=== PATIENT | female | born 1980 | race Caucasian/White ===

== ENCOUNTER → 2018-07-28 | Outpatient (CLI) | payer OTHER ==
--- NOTE | 2018-07-29 07:57 | USB ---
Reason for exam: clinical finding. Indicated problem(s): lump or thickening in the right breast. Physical Findings: Nurse Summary: Patient complains of right breast lump x 8 months with pain (nurse mj). US Breast RT Right complete breast ultrasound includes all four quadrants, the retroareolar region and axilla. Finding demonstrates no cystic or solid lesion seen. Benign appearing node in right axilla. These results were verbally communicated with the patient and result sheet given to the patient on 07/28/18. ASSESSMENT: Benign, BI-RAD 2 RECOMMENDATION: Routine screening mammogram of both breasts at age 42. Manage patient on a clinical basis.
== END ==
LOC: RADUSWWP 14:51
PROVIDERS: ATTEND Family Medicine
DX: N63.13 Unspecified lump in the right breast, lower outer quadrant (principal)

== ENCOUNTER → 2018-08-19 | Outpatient (CLI) | payer OTHER ==
--- NOTE | 2018-08-19 16:27 | XR ---
EXAM TYPE: LUMBAR SPINE X RAY SERIES COMPARISON: NONE HISTORY: Pain TECHNIQUE: 3 views are submitted. FINDINGS: Alignment is anatomic. The pedicles are intact. The transverse processes are intact. There is no s pondylolysis or spondylolisthesis. Hypertrophic changes are seen and there is degenerative disc dise ase L4-5 and L5-S1. IMPRESSION: 1. Mild degenerative disc disease lower lumbar spine recommend follow-up MRI.
--- NOTE | 2018-08-19 16:29 | XR ---
EXAMINATION TYPE: XR cervical spine comp DATE OF EXAM: 08/19/2018 COMPARISON: NONE HISTORY: Pain TECHNIQUE: Four views are submitted. FINDINGS: The odontoid is intact. There are no compression deformities. The prevertebral soft tissue structur es are within normal limits. Hypertrophic changes and degenerative disc disease at C4-5, C5-6 and es pecially C6-C7. Mild foraminal encroachment C4-5 and C5-6 on the left. Chronic fragmentation of the o ccipital protuberance is incidentally noted. IMPRESSION: 1. Multilevel degenerative disc disease with suspected foraminal encroachment recommend follow-up MRI .
== END | disposition home or self-care (01) ==
LOC: RADXRMAIN 13:51
PROVIDERS: ATTEND Physician Assistant
DX: M50.321 Other cervical disc degeneration at C4-C5 level (principal); M51.36 Other intervertebral disc degeneration, lumbar region
CPT/HCPCS: 72050; 72100

== ENCOUNTER → 2019-01-24 | Outpatient (CLI) | payer OTHER ==
--- NOTE | 2019-01-24 15:55 | MR ---
EXAMINATION TYPE: MR lumbar spine wo con DATE OF EXAM: 01/24/2019 COMPARISON: None HISTORY: Low back pain TECHNIQUE: Multiplanar, multisequence images of the lumbar spine were acquired. Lumbar vertebra have normal alignment. Disc spaces are fairly normal. Posterior elements are intact. Intervertebral discs have normal signal pattern. Lumbar nerve roots appear normal. Neural foramina ap pear widely patent. There is no lumbar paraspinal mass. Sacroiliac joints appear normal. There is no compression fracture . There is no evidence of spinal stenosis. IMPRESSION: Normal MR scan of the lumbar spine.
== END ==
LOC: RADMRIMAIN 10:21
PROVIDERS: ATTEND Family Medicine
DX: M54.5 Low back pain (principal)
CPT/HCPCS: 72148

== ENCOUNTER → 2019-10-23 | Outpatient (CLI) | payer OTHER ==
--- NOTE | 2019-10-27 09:17 | MM ---
Reason for exam: screening (asymptomatic). Baseline mammogram. History: Patient is nulliparous. Family history of breast cancer in paternal aunt at age 40 and breast cancer in paternal aunt. Took progesterone for 5 years beginning at age 33. Physical Findings: Nurse did not find any significant physical abnormalities on exam. MG Screening Mammo w CAD Bilateral CC and MLO view(s) were taken. There are scattered fibroglandular densities. Finding: There is an intermediate concern, suspicious 5-6 mm high density, oval mass in the subareolar position of the right breast consistent with questionable mass. There is no discrete abnormality. These results were verbally communicated with the patient and result sheet given to the patient on 10/23/19. ASSESSMENT: Incomplete: need additional imaging evaluation, BI-RAD 0 RECOMMENDATION: Special view mammogram of the right breast.
--- NOTE | 2019-10-27 09:18 | MM ---
Reason for exam: additional evaluation requested from abnormal screening. History: Patient is nulliparous. Family history of breast cancer in paternal aunt at age 40 and breast cancer in paternal aunt. Took progesterone for 5 years beginning at age 33. MG Work Up Mamm w CAD RT Spot compression CC view(s) were taken of the right breast. There is no discrete abnormality. These results were verbally communicated with the patient and result sheet given to the patient on 10/23/19. ASSESSMENT: Benign, BI-RAD 2 RECOMMENDATION: Return to routine screening mammogram schedule for both breasts.
== END | disposition home or self-care (01) ==
LOC: RADMAMWWP 14:19
PROVIDERS: ATTEND Family Medicine
DX: Z12.31 Encounter for screening mammogram for malignant neoplasm of breast (principal); R92.8 Other abnormal and inconclusive findings on diagnostic imaging of breast
CPT/HCPCS: 77065; 77067

== ENCOUNTER → 2019-11-04 | Outpatient (CLI) | payer OTHER ==
--- NOTE | 2019-11-04 17:05 | CONS ---
CONSULTATION DATE OF SERVICE: 11/04/2019 This patient is a 39-year-old lady who has been evaluated in [facility] for snoring, witnessed episodes of stopped breathing during sleep, significant excessive daytime sleepiness and also symptoms of insomnia. HISTORY OF PRESENT ILLNESS/SLEEP-WAKE EVALUATION: The patient has had her symptoms for about 2 years. Her usual sleep schedule is from midnight or 2 a.m. until 7 or 9 a.m. She does have problems with falling asleep, although no TV in bedroom. She sleeps on the side position and stomach position with loud snoring and witnessed episodes of stopped breathing during sleep. She wakes up from sleep up to 5 times with episodes of nocturia. She wakes up with choking, grinding teeth, dry mouth, panic attacks, heartburn, restless legs, gasping for air and sweating. In the morning the patient wakes up tired, has difficulties paying attention, falling asleep during the day, worries about her sleep, has problems with memory, concentration, irritability, anxiety, sexual dysfunction. [place] Sleepiness Scale is significantly increased at 17. The patient takes naps up to 4 times a day. Sometimes she sees vivid dreams during naps. PAST MEDICAL HISTORY: Positive for hypertension, acid reflux, possibly mood disorder, allergies, asthma, pneumonia in May of 2019. MEDICATIONS: Spironolactone, albuterol, Verna, fluticasone, ibuprofen, Zoloft, omeprazole. SOCIAL HISTORY: Negative for smoking or using alcohol. FAMILY HISTORY: Positive for heart problems, hyperlipidemia, stroke, epilepsy, acid reflux. REVIEW OF SYSTEMS: Difficulties initiating sleep, awakenings from sleep, sleepiness during the day. PHYSICAL EXAMINATION: GENERAL: A pleasant lady without distress. VITAL SIGNS: BP 165/88, HR 100, RR 16, height 5 feet 2 inches, weight 233, BMI 42.6, temperature 97.8, oxygen saturation at room air 95%. HEENT: PERRLA, EOMI. Evaluation of oropharynx showed tongue protrudes midline. NECK: Supple. No JVD. Thyroid is not palpable. Neck measures 19-1/2 inches in circumference. LUNGS: Clear to percussion and to auscultation. Good air exchange. No wheezing or rhonchi. HEART: S1, S2 regular. No murmurs, gallops or rubs. ABDOMEN: Obese. EXTREMITIES: No clubbing or cyanosis. DINKEY DISPATCHER: Awake, alert, and oriented X3. Cranial nerves 2 to 7 intact. There is no fasciculation or atrophy. noted. No focal deficits observed. IMPRESSION: 1. Snoring, witnessed episodes of stopped breathing during sleep, multiple awakenings from sleep, wide neck; obstructive sleep apnea-hypopnea syndrome. 2. Significant excessive daytime sleepiness with [place] Sleepiness Scale 17 dictating necessity to include narcolepsy in the differential diagnosis. 3. Obesity. 4. Hypertension. 5. History of kicking at night; possibly periodic limb movements. 6. Acid reflux. 7. History of pneumonia in May of 2019. 8. Allergies. 9. Acid reflux. 10.Difficulties initiating sleep and insomnia. PLAN: 1. Polysomnography for evaluation of patient's breathing during sleep. 2. CPAP/BiPAP titration if sleep study confirms obstructive sleep apnea-hypopnea syndrome. 3. Preferable position during sleep on the side. 4. No driving if patient feels any sleepiness. 5. I will see patient for follow up visit to explain results of testing and following plan. 6. If the patient continues to have sleepiness after treatment of obstructive sleep apnea which is documented, the patient may need a multiple sleep latency test for objective evaluation of her symptoms of sleepiness for possibility of narcolepsy. Thank you very much for referring this patient for consultation. Sincerely, Seferino Post MD, PhD, FAASM Diplomat of [place] [employer] Specialties [place] [employer] Miller [facility] [place] MMODL / NALININ: [id number] /
== END | disposition home or self-care (01) ==
LOC: SLEEP 13:28
PROVIDERS: ATTEND Internal Medicine
DX: G47.33 Obstructive sleep apnea (adult) (pediatric) (principal); I10 Essential (primary) hypertension; E66.9 Obesity, unspecified; K21.9 Gastro-esophageal reflux disease without esophagitis; Z87.01 Personal history of pneumonia (recurrent)
CPT/HCPCS: 99211

== ENCOUNTER → 2021-05-24 | Outpatient (CLI) | payer OTHER ==
--- NOTE | 2021-05-24 16:10 | SFUN ---
SLEEP CENTER FOLLOW UP NOTE DATE OF SERVICE: 05/24/2021 41-year-old lady has been followed in Sleep Center for treatment of obstructive sleep apnea-hypopnea syndrome. I saw patient in October of 2019. At that time, it was recommended to her to proceed with polysomnogram but for different reason, it was not done at that time. The patient continues to have problems with her sleep. Loud snoring, multiple awakenings from sleep. She feels significantly sleepy during the day. [place] Sleepiness Scale today is 12, which is above normal range. She may take several naps during the day. MEDICATIONS: Gabapentin 40 mg twice a day, ibuprofen 800 mg twice a day, loratadine 10 mg once a day, omeprazole 40 mg once a day, fenofibrate 160 mg once a day, cyclobenzaprine 10 mg once a day spironolactone 25 mg 2 tablets a day, Pro air, fluticasone, melatonin. PHYSICAL EXAMINATION: GENERAL: Patient in no distress. BP 142/89, HR about 100, RR 18, height 5 feet 2-1/4 inches, weight 220.2 pounds, body mass index 39.9, temperature 97.4, oxygen saturation at room air 95%. Oropharynx extremely low position of soft palate, Mallampati 4. NECK is very wide 19.5 inches in circumference. Neck: Supple, no JVD. Thyroid is not palpable. LUNGS: Clear to percussion and to auscultation. Good air exchange. No wheezing or rhonchi. HEART: S1, S2 regular. No murmurs, gallops, or rubs. ABDOMEN: Obese. Soft and nontender. Bowel sounds are present. No organomegaly appreciated. EXTREMITIES: No clubbing or cyanosis. SERVICE DELIVERY SUPERVISOR: Awake, alert, and oriented X3. Cranial nerves 2 to 7 intact. There is no fasciculation or atrophy. noted. No focal deficits observed. IMPRESSION: 1. Loud snoring, multiple awakenings from sleep, extremely low position of soft palate, wide neck, 19.5 inches in circumference, obstructive sleep apnea-hypopnea syndrome. 2. Excessive daytime sleepiness by [place] Sleepiness Scale. 3. Obesity. Body mass index 39.9. 4. Hypertension. 5. History of kicking at night possibly periodic limb movements. 6. Acid reflux. 7. Allergies. PLAN: 1. Polysomnography for evaluation of patient breathing during sleep also to check for possible periodic limb movements. 2. Sleep hygiene with regular time in bed for at least 8 hours. 3. Precautions related to driving. No driving if feeling sleepiness. 4. Following plan after reviewing results of sleep study. If sleep study is negative, we may consider to proceed with multiple sleep latency test. Thank you very much for allowing me to participate in management of your patient. Sincerely, Seferino Post MD, PhD, FAASM Diplomat of [place] [employer] Sleep Medicine Board of [place] [employer] Suppression Crew Leader [facility] [place] MMODL / IJN: [id number] /
== END ==
LOC: SLEEP 13:33
PROVIDERS: ATTEND Internal Medicine
DX: G47.33 Obstructive sleep apnea (adult) (pediatric) (principal); E66.9 Obesity, unspecified; I10 Essential (primary) hypertension; K21.9 Gastro-esophageal reflux disease without esophagitis; T78.40XD Allergy, unspecified, subsequent encounter; Z68.39 Body mass index [BMI] 39.0-39.9, adult; Z79.899 Other long term (current) drug therapy

== ENCOUNTER 2021-06-21 12:36 | Inpatient (IN) | payer OTHER ==
[2021-06-21 14:03] LABS: Basophils % (A) 0 %; Eosinophils # (A) 0.1 k/uL (0-0.7); Eosinophils % (A) 1 %; HCT 44.9 % (34.0-46.0); HGB 14.8 gm/dL (11.4-16.0); Lymphocytes # (A) 2.2 k/uL (1.0-4.8); Lymphocytes % (A) 25 %; MCH 31.2 pg (25.0-35.0); MCHC 33.1 g/dL (31.0-37.0); MCV 94.3 fL (80.0-100.0); Mean Platelet Volume 6.5; Monocytes # (A) 0.4 k/uL (0-1.0); Monocytes % (A) 5 %; Neutrophils # (A) 6.1 k/uL (1.3-7.7); Neutrophils % (A) 67 %; Platelet Count 327 k/uL (150-450); RBC 4.76 m/uL (3.80-5.40); RDW 13.1 % (11.5-15.5); WBC 9.1 k/uL (3.8-10.6)
[2021-06-21 14:11] LABS: ALT 29 U/L (4-34); AST 30 U/L (14-36); African American GFR (CKD) >90 (>60 ml/min/1.73 sqM); Albumin 4.3 g/dL (3.5-5.0); Alcohol <10 mg/dL; Alkaline Phosphatase 62 U/L (38-126); Anion Gap 10 mmol/L; Blood Urea Nitrogen 16 mg/dL (7-17); Calcium 9.5 mg/dL (8.4-10.2); Carbon Dioxide 24 mmol/L (22-30); Chloride 106 mmol/L (98-107); Glucose 101 mg/dL (74-99); Non-African American GFR(CKD) 80 (>60 ml/min/1.73 sqM); Potassium 4.3 mmol/L (3.5-5.1); Sodium 140 mmol/L (137-145); Total Bilirubin 0.4 mg/dL (0.2-1.3); Total Protein 7.4 g/dL (6.3-8.2)
--- NOTE | 2021-06-21 14:15 | XR ---
EXAMINATION TYPE: XR chest 2V DATE OF EXAM: 06/21/2021 COMPARISON: None available HISTORY: Altered mental status TECHNIQUE: Frontal and lateral views of the chest are obtained. FINDINGS: Grossly unremarkable lungs. No pleural effusion or pneumothorax. No cardiomegaly. Mild degenerative c hanges of the lower thoracic spine. IMPRESSION: No acute abnormality identified.
[2021-06-21 14:26] LABS: INR 0.9 (<1.2); Partial Thromboplastin Time 25.4 sec (22.0-30.0); Prothrombin Time 10.4 sec (9.0-12.0)
--- NOTE | 2021-06-21 14:37 | CT ---
EXAMINATION TYPE: CT brain wo con for TPA DATE OF EXAM: 06/21/2021 COMPARISON: None HISTORY: Trouble speaking CT DLP: 1102.[address] of the brain was performed. There is focal decreased attenuation involving the left frontal lobe which may reflect acute CVA. Und erlying lesion is difficult to exclude. Consider MRI correlation. There is no evidence for hemorrhagic transformation. The ventricles basal cisterns and sulci The cerebral convexities are otherwise within normal limits. No mass effects are seen. Osseous calvarium is intact. If symptoms persist consider MRI as clinically warranted. IMPRESSION: 1. There is focal decreased attenuation involving the left frontal lobe which may reflect acute CVA. Underlying lesion is difficult to exclude. Consider MRI correlation.
[2021-06-21 14:51] LABS: Appearance,Urine Cloudy (Clear); Bilirubin,Urine Negative (Negative); Blood,Urine Negative (Negative); Color,Urine Yellow; Glucose,Urine (UA) Negative (Negative); Ketones,Urine Negative (Negative); Leukocyte Esterase,Urine Negative (Negative); Nitrite,Urine Negative (Negative); PH, Urine 6.5 (5.0-8.0); Protein,Urine Negative (Negative); Specific Gravity,Urine 1.023 (1.001-1.035); Squamous Epithelial Cell,Urine <1 /hpf (0-4); Urobilinogen,Urine <2.0 mg/dL (<2.0); WBC,Urine <1 /hpf (0-5)
[2021-06-21 15:03] LABS: Amphetamine Screen,Urine Not Detected (NotDetected); Barbiturate Screen,Urine Not Detected (NotDetected); Benzodiazepines Screen,Urine Not Detected (NotDetected); Cocaine Screen,Urine Not Detected (NotDetected); Methadone Screen, Urine Not Detected (NotDetected); Opiate Screen,Urine Not Detected (NotDetected); Oxycodone Screen, Urine Not Detected (NotDetected); Phencyclidine Screen,Urine Not Detected (NotDetected); Tricyclic Antidepressant,Urine Not Detected (NotDetected); Urn Cannabinoid Scrn Detected (NotDetected)
--- NOTE | 2021-06-21 15:37 | CT ---
EXAMINATION TYPE: CT angio head neck DATE OF EXAM: 06/21/2021 HISTORY: Trouble speaking COMPARISON: Nonenhanced CT scan performed earlier today CT DLP: 730.8 mGycm. Automated Exposure Control for Dose Reduction was Utilized. TECHNIQUE: CTA scan of the neck and head is performed with IV Contrast, patient injected with 65 mL of Isovue 370, axial images are obtained, coronal and sagittal reformatted images are reviewed. 3D an d MIP reconstructed images are created on an independent workstation and reviewed. FINDINGS: Markedly reduced caliber of the supraclinoid portion and terminus of the left internal carotid artery with reduced caliber of the A1 segment of the left GITA. The left MCA is not well seen opacified with either markedly reduced caliber or complete occlusion with collaterals with reduced enhancement of t he left MCA distal branches as compared to the right sided branches. Left frontal and to a lesser extent left posterior temporal cortical and subcortical hypodensities, p ossibly representing acute to subacute infarcts. Complete [place] of [place] is noted. Separate origin of the left vertebral artery arising directly from the aortic arch between the left common carotid an d left subclavian origins. Otherwise normal caliber and enhancement of the neck arteries and intracranial arteries without other significant stenosis, other occlusion, dissection, aneurysm or AV malformation. Patent major intracr anial venous sinuses. Enlarged nasopharyngeal and palatine tonsils. Degenerative changes at C5-6 and C6-7 levels. 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 This could represent either a markedly reduced caliber of the left MCA versus complete occlusion with collaterals. Recommend correlation with the patient's medical history and presentation. Underlying a rterial spasm or vasculitis cannot be excluded. Further MRI assessment can be considered if clinicall y required.
[2021-06-21] MEDS ORDERED: ASPIRIN 325 MG TAB PO STA (16:05)
--- NOTE | 2021-06-21 16:11 | ED ---
General Adult HPI - General Chief complaint: Neuro Symptoms/Deficit Stated complaint: Speech Issues Time Seen by Provider: 06/21/21 13:09 Source: patient, RN notes reviewed, old records reviewed Mode of arrival: wheelchair Limitations: no limitations - History of Present Illness Initial comments: Patient is a 41-year-old female with past medical history remarkable for diabetes, hypertension who presents emergency Department complaining of neurological complaints. She states that for the last 3 days, she has noticed difficulty with finding words. When he 2 weeks ago she was diagnosed with right hand carpal tunnel and his weakness with associate research scientist strength on the right side. Denies any sensory deficits or weakness otherwise. Denies any history of blood clots. Patient's mother does have a history of a stroke at an older age. She has no other acute complaints at this time. Presents over concern for her neurological complaints. She was started on gabapentin for her carpal tunnel as well as chronic nerve pain in her legs and was concerned that maybe this was what was causing her symptoms. Last known well was 3 days ago. It is possible she was having some minor symptoms prior to that as well, including the reduced associate research scientist strength in the right hand. She is not on blood thinners. - Related Data Home Medications Medication Instructions Recorded Confirmed Albuterol Sulfate [Proair Hfa] 2 puff INHALATION RT-Q4H PRN 06/21/21 06/21/21 Cyclobenzaprine [Flexeril] 10 mg PO DAILY 06/21/21 06/21/21 Erythromycin Topical [Erythromycin 1 applic TOPICAL DAILY PRN 06/21/21 06/21/21 2% Topical Soln] Fenofibrate [Lofibra] 160 mg PO DAILY 06/21/21 06/21/21 Fluticasone Nasal [place] [Flonase 2 spr EA NOSTRIL DAILY 06/21/21 06/21/21 Nasal [place]] Gabapentin [Neurontin] 400 mg PO HS 06/21/21 06/21/21 Ibuprofen [Motrin] 800 mg PO TID 06/21/21 06/21/21 Loratadine 10 mg PO DAILY 06/21/21 06/21/21 Magnesium Oxide 400 mg PO DAILY 06/21/21 06/21/21 Melatonin 3 mg PO HS 06/21/21 06/21/21 Omeprazole 40 mg PO DAILY 06/21/21 06/21/21 Spironolactone [Aldactone] 50 mg PO DAILY 06/21/21 06/21/21 Allergies Allergy/AdvReac Type Severity Reaction Status Date / Time No Known Allergies Allergy Verified 06/21/21 14:23 Review of Systems ROS Statement: Those systems with pertinent positive or pertinent negative responses have been documented in the HPI. Review of Systems: CONST: Denies fever EYES: Denies blurry vision ENT: Denies nasal congestion C/V: Denies Chest pain RESP: Denies shortness of breath GI: Denies abdominal pain : Denies dysuria SKIN: Denies rash. MSK: Denies joint pain. NEURO: Denies headache ROS Other: All systems not noted in ROS Statement are negative. Past Medical History Past Medical History: Diabetes Mellitus, Hypertension History of Any Multi-Drug Resistant Organisms: None Reported Past Surgical History: Unable to Obtain Past Psychological History: Anxiety, Depression, PTSD Smoking Status: Current every day smoker Past Alcohol Use History: None Reported Past Drug Use History: Marijuana General Exam - General Exam Comments Initial Comments: General: Appears in no acute distress. HEAD: Normal with no signs of head trauma. EYES: PERRLA, EOMI, conjunctiva normal, no discharge. Pupils are 3 mm and equal bilaterally. ENT: Hearing grossly intact, normal oropharynx. RESPIRATORY: Clear breath sounds bilaterally. No wheezes, rales, or rhonchi. C/V: Regular rate and rhythm. S1 and S2 auscultated, no edema, peripheral pulses 2+ and intact throughout ABD: Abd is soft, nontender, nondistended EXT: Normal range of motion, no obvious deformity SKIN: No rashes or lesions observed on exposed skin. NEURO: Alert and oriented 4. Cranial nerves II through XII are intact. NIH is 1 for aphasia. GCS is 15. Patient also has reduced associate research scientist strength in the right hand, however has no acute findings with the right arm overall including negative drift. Limitations: no limitations Course Vital Signs 06/21/21 06/21/21 12:46 16:37 Temperature 98.3 F Pulse Rate 116 H 101 H Respiratory 18 18 Rate Blood Pressure 162/118 147/103 O2 Sat by Pulse 98 96 Oximetry Medical Decision Making - Medical Decision Making Based on the patient's presentation and physical exam, I'm concerned for possible stroke due to the acute onset of aphasia as well as reduced right associate research scientist strength. However this could be secondary to her gabapentin and polypharmacy. Due to her being at least 3 days out from symptom onset, code stroke was not activated. She is not a TPA candidate. Last known well was at least 3 days ago but possibly longer. We will obtain CT angiogram as well as CT brain without contrast. NIH is 1 for aphasia. Patient was in agreement this plan. We will obtain stroke workup as well. EKG showed no signs of acute ischemia. Laboratory studies were remarkable for a negative troponin. Ammonia is within normal limits. UDS is positive for marijuana but nothing else. Remainder the labs are unremarkable. Chest x-ray revealed no acute cardio pulmonary process. CT brain revealed what appears to be a suspected subacute stroke in the left frontal lobe, with recommending MRI for follow-up. CT angiogram revealed a suspected left frontal and left temporal acute to subacute infarct in the left MCA territory with reduced caliber of the left internal carotid artery as well as left MCA. Radiology discuss this with me and said it could either be acute or chronic occlusion of the MCA with collaterals present. Underlying arterial spasm or vasculitis cannot be excluded. Recommend MRI still. I discussed these findings with the patient and her mother. She will be admitted. They were in agreement this plan. She'll be given an aspirin. I spoke with neurointervention, Dr. Aguilera who agreed with the medical management plan. She is outside of the window for thrombectomy. He reviewed the images and said that he cannot rule out moyamoya. Would like her to follow up with him outpatient after she is discharged on this admission. I spoke with Dr. Briscoe and consulted neurology, who was in agreement with medical management and the plan for admission. MRI was ordered by him. On reevaluation, patient's neurological exam is unchanged. She'll be admitted to this hospital and serious condition. She'll be admitted to telemetry bed. I spoke with the admitting team under Dr. Macias who accepted the patient. - Lab Data Result diagrams: 06/21/21 13:43 06/21/21 13:43 Lab Results 06/21/21 06/21/21 06/21/21 Range/Units 13:28 13:43 13:43 WBC 9.1 (3.8-10.6) k/uL RBC 4.76 (3.80-5.40) m/uL Hgb 14.8 (11.4-16.0) gm/dL Hct 44.9 (34.0-46.0) % MCV 94.3 (80.0-100.0) fL MCH 31.2 (25.0-35.0) pg MCHC 33.1 (31.0-37.0) g/dL RDW 13.1 (11.5-15.5) % Plt Count 327 (150-450) k/uL MPV 6.5 Neutrophils % 67 % Lymphocytes % 25 % Monocytes % 5 % Eosinophils % 1 % Basophils % 0 % Neutrophils # 6.1 (1.3-7.7) k/uL Lymphocytes # 2.2 (1.0-4.8) k/uL Monocytes # 0.4 (0-1.0) k/uL Eosinophils # 0.1 (0-0.7) k/uL Basophils # 0.0 (0-0.2) k/uL PT 10.4 (9.0-12.0) sec INR 0.9 (<1.2) APTT 25.4 (22.0-30.0) sec Sodium (137-145) mmol/L Potassium (3.5-5.1) mmol/L Chloride (98-107) mmol/L Carbon Dioxide (22-30) mmol/L Anion Gap mmol/L BUN (7-17) mg/dL Creatinine (0.52-1.04) mg/dL Est GFR (CKD-EPI)AfAm (>60 ml/min/1.73 sqM) Est GFR (CKD-EPI)NonAf (>60 ml/min/1.73 sqM) Glucose (74-99) mg/dL Calcium (8.4-10.2) mg/dL Total Bilirubin (0.2-1.3) mg/dL AST (14-36) U/L ALT (4-34) U/L Alkaline Phosphatase (38-126) U/L Ammonia 11 (<30) umol/L Troponin I (0.000-0.034) ng/mL Total Protein (6.3-8.2) g/dL Albumin (3.5-5.0) g/dL Urine Color Urine Appearance (Clear) Urine pH (5.0-8.0) Ur Specific [place] (1.001-1.035) Urine Protein (Negative) Urine Glucose (UA) (Negative) Urine Ketones (Negative) Urine Blood (Negative) Urine Nitrite (Negative) Urine Bilirubin (Negative) Urine Urobilinogen (<2.0) mg/dL Ur Leukocyte Esterase (Negative) Urine WBC (0-5) /hpf Ur Squamous Epith Cells (0-4) /hpf Urine Opiates Screen (NotDetected) Ur Oxycodone Screen (NotDetected) Urine Methadone Screen (NotDetected) Ur Propoxyphene Screen (NotDetected) Ur Barbiturates Screen (NotDetected) U Tricyclic Antidepress (NotDetected) Ur Phencyclidine Scrn (NotDetected) Ur Amphetamines Screen (NotDetected) U Methamphetamines Scrn (NotDetected) U Benzodiazepines Scrn (NotDetected) Urine Cocaine Screen (NotDetected) U Marijuana (THC) Screen (NotDetected) Serum Alcohol mg/dL 06/21/21 06/21/21 06/21/21 Range/Units 13:43 13:43 13:43 WBC (3.8-10.6) k/uL RBC (3.80-5.40) m/uL Hgb (11.4-16.0) gm/dL Hct (34.0-46.0) % MCV (80.0-100.0) fL MCH (25.0-35.0) pg MCHC (31.0-37.0) g/dL RDW (11.5-15.5) % Plt Count (150-450) k/uL MPV Neutrophils % % Lymphocytes % % Monocytes % % Eosinophils % % Basophils % % Neutrophils # (1.3-7.7) k/uL Lymphocytes # (1.0-4.8) k/uL Monocytes # (0-1.0) k/uL Eosinophils # (0-0.7) k/uL Basophils # (0-0.2) k/uL PT (9.0-12.0) sec INR (<1.2) APTT (22.0-30.0) sec Sodium 140 (137-145) mmol/L Potassium 4.3 (3.5-5.1) mmol/L Chloride 106 (98-107) mmol/L Carbon Dioxide 24 (22-30) mmol/L Anion Gap 10 mmol/L BUN 16 (7-17) mg/dL Creatinine 0.91 (0.52-1.04) mg/dL Est GFR (CKD-EPI)AfAm >90 (>60 ml/min/1.73 sqM) Est GFR (CKD-EPI)NonAf 80 (>60 ml/min/1.73 sqM) Glucose 101 H (74-99) mg/dL Calcium 9.5 (8.4-10.2) mg/dL Total Bilirubin 0.4 (0.2-1.3) mg/dL AST 30 (14-36) U/L ALT 29 (4-34) U/L Alkaline Phosphatase 62 (38-126) U/L Ammonia (<30) umol/L Troponin I <0.012 (0.000-0.034) ng/mL Total Protein 7.4 (6.3-8.2) g/dL Albumin 4.3 (3.5-5.0) g/dL Urine Color Yellow Urine Appearance Cloudy H (Clear) Urine pH 6.5 (5.0-8.0) Ur Specific [place] 1.023 (1.001-1.035) Urine Protein Negative (Negative) Urine Glucose (UA) Negative (Negative) Urine Ketones Negative (Negative) Urine Blood Negative (Negative) Urine Nitrite Negative (Negative) Urine Bilirubin Negative (Negative) Urine Urobilinogen <2.0 (<2.0) mg/dL Ur Leukocyte Esterase Negative (Negative) Urine WBC <1 (0-5) /hpf Ur Squamous Epith Cells <1 (0-4) /hpf Urine Opiates Screen Not Detected (NotDetected) Ur Oxycodone Screen Not Detected (NotDetected) Urine Methadone Screen Not Detected (NotDetected) Ur Propoxyphene Screen Not Detected (NotDetected) Ur Barbiturates Screen Not Detected (NotDetected) U Tricyclic Antidepress Not Detected (NotDetected) Ur Phencyclidine Scrn Not Detected (NotDetected) Ur Amphetamines Screen Not Detected (NotDetected) U Methamphetamines Scrn Not Detected (NotDetected) U Benzodiazepines Scrn Not Detected (NotDetected) Urine Cocaine Screen Not Detected (NotDetected) U Marijuana (THC) Screen Detected H (NotDetected) Serum Alcohol <10 mg/dL - EKG Data -: EKG Interpreted by Ga EKG Comments: 12-lead Electrocardiogram Interpretation Note EKG was reviewed and interpreted by myself. 12-lead ECG performed at 1334 is interpreted by me as revealing sinus tachycardia at a rate of 110 beats per mi nute. [place] is normal. AL interval is 129 ms, QRS duration is 85 ms, QTc is 385 ms.. There were no ST or T wave abnormalities to suggest myocardial ischemia or injury. R wave progression across the precordium was satisfactory. By my interpretation this EKG is non-diagnostic for acute ischemia. Critical Care Time Critical Care Time: Yes Total Critical Care Time: 35 Critical Care Time: Upon my evaluation, this patient had a high probability of imminent or life- threatening deterioration due to subacute CVA, which required my direct attention, intervention, and personal management. I have personally provided 35 minutes of critical care time exclusive of time spent on separately billable procedures. Time includes review of laboratory data, radiology results, discussion with consultants, and monitoring for potential decompensation. Interventions were performed as documented in my note. Disposition Clinical Impression: CVA (cerebral vascular accident), Aphasia Disposition: ADMITTED IP TO THIS HOSP Condition: Serious Is patient prescribed a controlled substance at d/c from ED?: No
[2021-06-21] MEDS ORDERED: SODIUM CHLORIDE 0.9% 1,000 ML IV STA (16:22)
[2021-06-21] MEDS ORDERED: ATORVASTATIN 80 MG TAB PO STA (16:22)
[2021-06-21] MEDS ORDERED: hydrALAZINE HCL 20 MG/ML 1 ML VIAL IVP STA (17:07)
[2021-06-21 20:13] LABS: Glucose,Whole Blood 101 mg/dL (75-99)
[2021-06-21] MEDS: HEPARIN SODIUM,PORCINE/PF 5,000 UNIT/0.5 ML SYRINGE SQ SCH (22:02)
[2021-06-21] MEDS: GABAPENTIN 400 MG CAP PO SCH (22:02)
[2021-06-21] MEDS: MELATONIN 3 MG TABLET PO SCH (22:06)
[2021-06-22 06:09] LABS: Glucose,Whole Blood 124 mg/dL (75-99)
[2021-06-22] MEDS: PANTOPRAZOLE 40 MG TABLET PO SCH (06:09)
[2021-06-22] MEDS: LORATADINE 10 MG TAB PO SCH (08:36)
[2021-06-22] MEDS: CYCLOBENZAPRINE 10 MG TAB PO SCH (08:36)
[2021-06-22] MEDS: CLOPIDOGREL 75 MG TAB PO SCH (08:36)
[2021-06-22] MEDS: ASPIRIN 81 MG PO SCH (08:36)
[2021-06-22] MEDS: HEPARIN SODIUM,PORCINE/PF 5,000 UNIT/0.5 ML SYRINGE SQ SCH ×2 (08:36→20:08)
[2021-06-22] MEDS: SPIRONOLACTONE 25 MG TAB PO SCH (08:36)
[2021-06-22] MEDS ORDERED: ALBUTEROL NEBULIZED 2.5 MG/3 ML INHALATION PRN (09:18)
[2021-06-22 09:29] LABS: Chol/HDL Ratio 4.99 Ratio; LDL Cholesterol,Calculated 134.1 mg/dL (0.0-131.0)
[2021-06-22] MEDS: NICOTINE 14MG/24HR PATCH TRANSDERM SCH (10:01)
--- NOTE | 2021-06-22 10:29 | P.CNNES ---
History of Present Illness Consult date: 06/22/21 Requesting physician: Hayden Butterfield Reason for Consult: subacute ischemic stroke History of Present Illness: This is a 41-year-old right-handed woman with history of hypertension, diabetes, bilateral carpal tunnel syndrome who presented emergency department on 06/21/2021 because of word finding difficulties for the past 3 days prior to presenting to the hospital. Some of the history is obtained from medical record s because of her speech difficulty. Patient stated that the as stated earlier she's been having difficulty getting her words out and is seems more word finding difficulties. Per patient she has noticed right hand weakness about 4 days ago prior to presenting to hospital but was inconistent with that time and notified ED team she had right hand weakness for 2 weeks and was told she had right carpal tunnel syndrome. According to patient she notified me that she was told she had bilateral carpal tunnel syndrome in 03/2021 and was started on Gabapentin during that time. Otherwise denies of any new neurological deficits. She denies of visual disturbance, swallowing, any other focal deficits, any new numbness or tingling. She denies of headache, nausea or vomiting. She was concerned that he symptoms were worse due to Gabapentin since was taking more but could not tell me how much more. She denies history of stroke or TIA in the past. She denies being on antiplatelets or anticoagulation. Her mother has history of stroke in her 60's years old. The patient smokes 1/2PPD for at least 15 years. Denies alcohol use or illicit drug use. She follows-up with Dr. Mane (neurologist) and was the one who notified her that she has bilateral carpal tunnel (right > left) and she had peripheral neuropathy of lower extremities. She felt she had hypertension for at least 5 years. Patient is on gabapentin 400 mg daily at bedtime, Flexeril 10 mg daily, melatonin 3 mg daily at bedtime Some of the workup in the hospital consisted of: Patient initial blood pressure is 162/118, heart rate of 116, temperature of 98.3. Patient has been afebrile during this admission CBC with differential is unremarkable Chemistry panel is unremarkable. With the initial serum glucose of 101. Calcium is 9.5, a COTTON[employer] MEAT [employer]ESSER disease within normal limits ammonia level is 11. Hemoglobin A1c 6.6 TSH is 1.8-0. PT, PTT in INR is within normal limits Urinalysis is negative for urinary tract infection. Urine drug screen is positive for marijuana otherwise the rest is nondetected and serum alcohol was less than 10. CT of the head is reported as there is focal decreased attenuation involving the left frontal lobe which may reflect acute CVA. Underlying lesion is difficult to exclude. Consider MRI correlation. I personally reviewed the CT of the head and there is a hypodensity over the left frontal region it is seems more subacute. Otherwise there is no acute or subacute ischemic or any interpretable hemorrhage that is noticeable. CT angiography of the head and neck was reported as suspected left frontal and left temporal acute to subacute infarct over the left MCA territory with reduced caliber of the left internal carotid artery terminus as well as the left MCA. This could represent either markedly reduced caliber of the left MCA versus complete occlusion with collateral. Recommend correlation with the patient's the medical history and presentation. Underlying arterial spasm or vasculitis cannot be excluded. Further MRI assessment can be considered if clinically required. Dr. Aguilera (Stroke/Neurointerventionalist attending) who was contacted by the ED team and he reviewed the images and felt cannot rule out Moyamoya. No thrombectomy since outside 24 hour window. NIH 1 for aphasia per ED and no IV tpa since outside window (present 3 days out) and the risk outweigh the benefits. Review of Systems Review of system: The 12 point system was reviewed and apparent positive and negative per HPI. Past Medical History Past Medical History: Diabetes Mellitus, Hypertension Additional Past Medical History / Comment(s): Patient states she was prediabetic, neuropathy. History of Any Multi-Drug Resistant Organisms: None Reported Past Surgical History: No Surgical Hx Reported Past Anesthesia/Blood Transfusion Reactions: No Reported Reaction Past Psychological History: Anxiety, Depression, PTSD Smoking Status: Current every day smoker Past Alcohol Use History: None Reported Past Drug Use History: Marijuana - Past Family History Mother Family Medical History: Coronary Artery Disease (CAD), CVA/TIA Father Family Medical History: Seizure Disorder Medications and Allergies Home Medications Medication Instructions Recorded Confirmed Type Albuterol Sulfate [Proair Hfa] 2 puff INHALATION RT-Q4H PRN 06/21/21 06/21/21 History Cyclobenzaprine [Flexeril] 10 mg PO DAILY 06/21/21 06/21/21 History Erythromycin Topical [Erythromycin 1 applic TOPICAL DAILY PRN 06/21/21 06/21/21 History 2% Topical Soln] Fenofibrate [Lofibra] 160 mg PO DAILY 06/21/21 06/21/21 History Fluticasone Nasal [place] [Flonase 2 spr EA NOSTRIL DAILY 06/21/21 06/21/21 History Nasal [place]] Gabapentin [Neurontin] 400 mg PO HS 06/21/21 06/21/21 History Ibuprofen [Motrin] 800 mg PO TID 06/21/21 06/21/21 History Loratadine 10 mg PO DAILY 06/21/21 06/21/21 History Magnesium Oxide 400 mg PO DAILY 06/21/21 06/21/21 History Melatonin 3 mg PO HS 06/21/21 06/21/21 History Omeprazole 40 mg PO DAILY 06/21/21 06/21/21 History Spironolactone [Aldactone] 50 mg PO DAILY 06/21/21 06/21/21 History Allergies Allergy/AdvReac Type Severity Reaction Status Date / Time No Known Allergies Allergy Verified 06/21/21 14:23 Physical Examination - Vital Signs Vital Signs: Vital Signs Temp Pulse Pulse Resp BP BP Pulse Ox 06/22/21 03:38 98.0 F 102 H 16 147/89 94 L 06/21/21 23:58 97.3 F L 88 18 136/88 94 L 06/21/21 19:37 97.7 F 101 H 18 146/98 95 06/21/21 17:58 98.2 F 94 18 144/96 97 06/21/21 16:37 101 H 18 147/103 96 06/21/21 12:46 98.3 F 116 H 18 162/118 98 Intake and Output 06/21/21 06/22/21 06/22/21 22:59 06:59 14:59 Other: Voiding Method Toilet # Voids 2 Weight 102.058 kg 103.5 kg GENERAL: The patient is an obese woman, lying in bed and is not in acute distress. She seems anxious. CHEST: The heart rate is regular rate rhythm. No murmurs to auscultation. No carotid bruit bilaterally. LUNG: Clear to auscultation bilaterally no wheezing noted throughout. Not labored breathing. ABDOMEN/GI: Bowel sounds present in all 4 quadrants. No tenderness to palpation throughout. NEUROLOGICAL: Higher mental function: The patient is awake, alert, oriented to self, place and time. Patient is able to name (watch, pen and glasses). Patient is following simple commands. Expressive aphasia. No neglect. Cranial nerves: The pupils are round, equal and reactive to light and accommodation. Visual santillan are full to confrontation throughout. Extraocular movement is intact no nystagmus is noted. Facial sensation is normal to touch throughout. The facial strength is normal throughout. Hearing is normal bilaterally to hand rub. Tongue is midline and moved [id number] without any difficulty. No dysarthria is noted. Shoulder shrug is normal bilaterally. Motor: Gait is normal. The strength is right distal right upper extremity is 3- 4 (including hand marriage therapist). Proximal seemed 5-. Otherwise 5 over 5 throughout. Decrease tone over the right distal upper extremity. Otherwise normal tone and bulk. Cerebellum: Normal finger to nose heel to hernandez bilaterally. Sensation: Sensation is normal to touch throughout. Reflexes (right/left): 2+ throughout. Plantars are downgoing bilaterally. Results - Laboratory Findings CBC and BMP: 06/21/21 13:43 06/21/21 13:43 Abnormal Lab Findings: Abnormal Labs 06/21/21 06/21/21 06/21/21 13:43 13:43 13:43 Glucose 101 H POC Glucose (mg/dL) Hemoglobin A1c 6.6 H Urine Appearance Cloudy H U Marijuana (THC) Screen Detected H 06/21/21 06/22/21 20:12 06:08 Glucose POC Glucose (mg/dL) 101 H 124 H Hemoglobin A1c Urine Appearance U Marijuana (THC) Screen Assessment and Plan Assessment: * Subacute ischemic stroke over left frontal (has expressive aphasia and right hand weakness for the past 3-4 days prior to presentation to hospital "word finding difficulty). NIH 1. No IV tpa since outside window. It is felt by the neuro-intervention team that possibly patient has Moyamoya disease * Reported left ICA/MCA stenosis per CTA (No intervention since outside window) * Diabetes mellitus and most recent hemoglobin A1c is 6.6 * Hypertension and during this presentation her blood pressure slightly elevated * Bilateral carpal tunnel syndrome (right > left) * Peripheral neuropathy * Obesity * Tobacco use (1/2 PPD) Plan: * Dr. Aguilera (Stroke/Neurointerventionalist attending) who reviewed the images and felt cannot rule out Moyamoya. Patient to follow-up with Dr. Aguilera as an outpatient for further management (possible diagnostic cerebral angiogram) and his team will coordinate the follow-up. * She was given aspirin 325mg once in the ED. I started the patient on aspirin the 81 mg and Plavix 75 mg daily (not on any antiplatelets at home). Patient is to be on dual antiplatelets for short duration (1-3 months and after that to stop Plavix and continue ASA indefidently. Will have patient follow-up with Dr. Aguilera within 1-2 weeks and will defer the final dose of stop of dual antiplatelets). I also gave a loading dose of Lipitor 80 mg once in the ED patient was started on Lipitor 40mg daily at bedtime for secondary stroke prop hylaxis * I ordered MRI of the brain and MRA of the head. * Ordered 2-D echo with bubble study. * I ordered ERASMO, antithrombin III antigen antibody, CRP, ESR, factor V Leiden mutation, lupus anticoagulant. Recommend consideration of further hypercoagulable workup as an outpatient * Continue neuro checks * Patient is on cardiac monitoring * PT, OT and GRAIN ELEVATOR WORKER is consulted * Patient is counseled on tobacco cessation * We'll defer the rest of the medical management to the primary team. * For DVT prophylaxis: Started the patient on subq heparin 5000U every 12 hours. * Upon discharge recommend the patient follow up with a neurologist as an outpatient within 1-2 weeks. Follow-up with Dr. Aguilera ([facility] at [phone]) within 1-2 weeks. The plan is discussed with the patient and her nurse. Thank you for the Consultation Salo Briscoe M.D. Neuro-Hospitalist Time with Patient: Greater than 30
[2021-06-22 11:32] LABS: Glucose,Whole Blood 95 mg/dL (75-99)
--- NOTE | 2021-06-22 11:36 | ECHOF ---
Referral Reason:stroke. Need bubble study MEASUREMENTS -------- HEIGHT: 157.5 cm WEIGHT: 103.4 kg BP: RVIDd: 2.5 cm (< 3.3) IVSd: 1.2 cm (0.6 - 1.1) LVIDd: 4.5 cm (3.9 - 5.3) LVPWd: 1.3 cm (0.6 - 1.1) IVSs: 1.5 cm LVIDs: 3.7 cm LVPWs: 1.2 cm LA Diam: 3.1 cm (2.7 - 3.8) MV E [place]: 0.51 m/s MV DecT: 310 ms MV A [place]: 0.67 m/s MV E/A Ratio: 0.76 RAP: 5.00 mmHg RVSP: 17.86 mmHg FINDINGS -------- Sinus rhythm. This was a technically adequate study. LV size, wall thickness and systolic function are normal, with an EF greater than 55%. The left hair tricular size is normal. The right ventricle is normal in size. The left atrial size is normal. The right atrial size is normal. Bubble study perfermord suboptimal. The aortic valve is trileaflet, and appears structurally normal. No aortic stenosis or regurgitation. Mild mitral regurgitation is present. Mild tricuspid regurgitation present. Right ventricular systolic pressure is normal at < 35 mmHg. There is no pulmonic regurgitation present. There is no pericardial effusion. CONCLUSIONS -------- 1. LV size, wall thickness and systolic function are normal, with an EF greater than 55%. 2. The left ventricular size is normal. 3. The right ventricle is normal in size. 4. The left atrial size is normal. 5. The right atrial size is normal. 6. Bubble study perfermord suboptimal. 7. The aortic valve is trileaflet, and appears structurally normal. No aortic stenosis or regurgitati on. 8. Mild mitral regurgitation is present. 9. Mild tricuspid regurgitation present. 10. There is no pericardial effusion. STOCK PLAN ADMINISTRATOR: Gi Zaragoza RDCS
--- NOTE | 2021-06-22 12:37 | MR ---
EXAMINATION TYPE: MR brain wo/w con, MR angio head wo con DATE OF EXAM: 06/22/2021 COMPARISON: CT angiogram of the brain and CT brain 06/21/2021 HISTORY: difficulty speaking. stroke. Right side weakness TECHNIQUE: Multiplanar, multisequence images of the brain and brainstem is performed without and with IV contras t, utilizing 10 mL intravenous Gadavist, [id number] imaging obtained through the [place] . 3-dimensional postprocessing was performed on an alternate workstation and reviewed . FINDINGS: There is motion on exam. Brain MRI with and without contrast: Diffusion weighted images demonstrate restricted diffusion in th e left frontoparietal artifacts and underlying white matter as well as a punctate focus in the right frontal cortex, axial image 25 series 403, corresponding signal change is present on inversion recove ry T2-weighted sequences. There is abnormal hyperintensity involving the anterior aspect of the ileana us callosum extending to the adjacent white matter in the right frontal cortex, some additional scatt ered areas of hyperintensity present in the subcortical and periventricular white matter There is no extra-axial fluid collection. The ventricular system and cisternal spaces are normal in size and melanie earance. The brain volume is age appropriate. The craniocervical junction appears within normal limits. Post contrast images demonstrate what is l ikely some minimal arthritic perfusion at the site of patient's subacute infarct. The dural venous si nuses appear patent. The visualized sinuses are showing some mucosal disease in the maxillary sinuses , ethmoid air cells, and the globes are intact. IMPRESSION: Subacute infarct primarily in the left frontoparietal location however small focus is pre sent contralaterally, consider embolic phenomenon. [place] MRA: The abnormalities described on prior CTA show corresponding signal changes on M RA. Suspect collateralization, reduced flow at the level of the M1 and A1 segments of the internal ca rotid artery on the left, difficult to exclude a chronic occlusion, consider underlying vasculitis. R educed signal is present in the middle cerebral artery supervision on the left corresponding to patie nt's cerebral vascular infarct. Motion is present which limits detail. No evident aneurysm, dissectio n. IMPRESSION: Findings correlate with previously described abnormalities on CTA. There is artifact on t he exam. Consider vasculitis, chronic occlusion, embolic phenomenon
--- NOTE | 2021-06-22 13:07 | P.HPIM ---
History of Present Illness H&P Date: 06/22/21 this is a 41-year-old female who presents to the emergency room with complaints of difficulty finding words over the last 3 days. States some slurred speech difficulty with pronunciation, Reports difficulty finding her words and reports right upper extremity weakness. Patient was a code stroke in the EC however was outside of the window for TPA infusion. Past medical history includes borderline diabetes, hypertension, recent diagnosis of right hand carpal tunnel 2 weeks ago with weakness and decreased channel business manager strength on the right side. Patient has anxiety/depression/PTSD is a current daily smoker smokes about 1 to 1/2 packs per day, also daily marijuana use. There is a family history for stroke, her mother had one in her 60s. Patient has recently started gabapentin for carpal tunnel and chronic neuropathy in her legs and was questioning if this is causing symptoms. Rachel follows with Dr Mane and Dr Witt in the outpatient setting. Patient admitted to the hospital with neurology consultation. Patient started on aspirin Plavix combination as well as lipitor. Takes lobfibra at home. Patient counseled extensively on the importance of nicotine cessation, weight loss, following appropriate diabetic medications and blood glucose monitoring. Chest x-ray negative for acute findings labs on admission unremarkable, glucose in the 120s, hemoglobin A1c 6.6, troponin negative, CRP 1.6, TSH 1.8-0, liver enzymes within normal limits. Urinalysis negative, urine drug toxicology negative with exception of marijuana. Lipid panel Tirglycerides 229, cholesterol 225, LDL 134, HDL 45 EKG shows sinus tachycardia heart rate 110 with a QT interval 385, no ST or T- wave abnormalities evident. Brain CT shows a focal decreased attenuation left frontal lobe which may reflect acute CVA with underlying lesion difficult to exclude CT angiography showed suspected left frontal and left temporal acute to subacute infarcts in the left MCA territory with reduced caliber of left internal carotid artery terminus as well as left MCA. Markedly reduced caliber of left MCA versus complete occlusion with collaterals. Underlying arterial spasm or vasculitis cannot be excluded. Additional findings in report. Brain MRI shows subacute infarct in the left frontoparietal location however small focus is present contralaterally, consider embolic phenomenon MRA shows similar findings consider vasculitis, chronic occlusion, embolic phenomenon. Pt afebrile, heart rate 94, blood pressure 144/96, 96% room air. REVIEW OF SYSTEMS: CONSTITUTIONAL: No fever, no malaise, no fatigue. HEENT: No recent visual problems or hearing problems. Denied any sore throat. CARDIOVASCULAR: No chest pain, orthopnea, PND, no palpitations, no syncope. PULMONARY: No shortness of breath, no cough, no hemoptysis. GASTROINTESTINAL: No diarrhea, no nausea, no vomiting, no abdominal pain. NEUROLOGICAL: No headaches, reports slurred speech, difficulty finding words, and right sided weakness onset 3 days ago HEMATOLOGICAL: Denies any bleeding or petechiae. GENITOURINARY: Denies any burning micturition, frequency, or urgency. MUSCULOSKELETAL/RHEUMATOLOGICAL: Denies any joint pain, swelling, or any muscle pain. ENDOCRINE: Denies any polyuria or polydipsia. The rest of the 14-point review of systems is negative. PHYSICAL EXAMINATION: GENERAL: The patient is alert and oriented x3, not in any acute distress. Well developed, well nourished. Obese HEENT: Pupils are round and equally reacting to light. EOMI. No scleral icterus. No conjunctival pallor. Normocephalic, atraumatic. No pharyngeal erythema. No thyromegaly. CARDIOVASCULAR: S1 and S2 present. No murmurs, rubs, or gallops. PULMONARY: Chest is clear to auscultation, no wheezing or crackles. ABDOMEN: Soft, nontender, nondistended, normoactive bowel sounds. No palpable organomegaly. MUSCULOSKELETAL: No joint swelling or deformity. EXTREMITIES: No cyanosis, clubbing, or pedal edema. NEUROLOGICAL: Right upper extremity weakness, no drift however hand grasp with weakened strength, lower extremity equal, has some ataxia with finger nose touch, also with difficulty finding words has to stop and think and trouble expressing. SKIN: No rashes. Assessment and Plan Assessment Subacute ischemic stroke with symptoms of broca aphasia, right upper extremities weakness over the last 3 to 4 days. Risk factors include obesity, hypertension, diabetes, chronic nicotine use. Patient counseled on the importance of lifestyle and risk factor modification in combination with medication compliance for stroke prevention. Pt does follow with a child care assistant at her primary care office and will continue to work closely with her on discharge. Hypertension Diabetes mellitus type 2 with hgb A1c of 6.6 Elevated inflammatory markers Recent diagnosis carpal tunnel right wrist Peripheral neuropathy, started on gabapentin recently Obesity Chronic daily nicotine use: counseling provided Marijuana use GI Prophylaxis: Protonix DVT Prophylaxis: Subcu heparin Full Code Plan Started on aspirin/plavix combination as well as lipitor Continue neuro checks Speech therapy evaluation Nicotine patch Resume appropriate home medications Discharge planning in the next 24 to 48 hours. Past Medical History Past Medical History: Diabetes Mellitus, Hypertension Additional Past Medical History / Comment(s): Patient states she was prediabetic, neuropathy. History of Any Multi-Drug Resistant Organisms: None Reported Past Surgical History: No Surgical Hx Reported Past Anesthesia/Blood Transfusion Reactions: No Reported Reaction Past Psychological History: Anxiety, Depression, PTSD Smoking Status: Current every day smoker Past Alcohol Use History: None Reported Past Drug Use History: Marijuana - Past Family History Mother Family Medical History: Coronary Artery Disease (CAD), CVA/TIA Father Family Medical History: Seizure Disorder Medications and Allergies Home Medications Medication Instructions Recorded Confirmed Type Albuterol Sulfate [Proair Hfa] 2 puff INHALATION RT-Q4H PRN 06/21/21 06/21/21 History Cyclobenzaprine [Flexeril] 10 mg PO DAILY 06/21/21 06/21/21 History Erythromycin Topical [Erythromycin 1 applic TOPICAL DAILY PRN 06/21/21 06/21/21 History 2% Topical Soln] Fenofibrate [Lofibra] 160 mg PO DAILY 06/21/21 06/21/21 History Fluticasone Nasal [place] [Flonase 2 spr EA NOSTRIL DAILY 06/21/21 06/21/21 History Nasal [place]] Gabapentin [Neurontin] 400 mg PO HS 06/21/21 06/21/21 History Ibuprofen [Motrin] 800 mg PO TID 06/21/21 06/21/21 History Loratadine 10 mg PO DAILY 06/21/21 06/21/21 History Magnesium Oxide 400 mg PO DAILY 06/21/21 06/21/21 History Melatonin 3 mg PO HS 06/21/21 06/21/21 History Omeprazole 40 mg PO DAILY 06/21/21 06/21/21 History Spironolactone [Aldactone] 50 mg PO DAILY 06/21/21 06/21/21 History Allergies Allergy/AdvReac Type Severity Reaction Status Date / Time No Known Allergies Allergy Verified 06/21/21 14:23 Physical Exam Vitals: Vital Signs Temp Pulse Pulse Resp BP BP Pulse Ox 06/22/21 08:07 96 06/22/21 03:38 98.0 F 102 H 16 147/89 94 L 06/21/21 23:58 97.3 F L 88 18 136/88 94 L 06/21/21 19:37 97.7 F 101 H 18 146/98 95 06/21/21 17:58 98.2 F 94 18 144/96 97 06/21/21 16:37 101 H 18 147/103 96 06/21/21 12:46 98.3 F 116 H 18 162/118 98 Intake and Output 06/21/21 06/22/21 06/22/21 22:59 06:59 14:59 Other: Voiding Method Toilet # Voids 2 Weight 102.058 kg 103.5 kg Results CBC & Chem 7: 06/21/21 13:43 06/21/21 13:43 Labs: Abnormal Lab Results - Last 24 Hours (Table) 06/21/21 06/21/21 06/21/21 Range/Units 13:43 13:43 13:43 Glucose 101 H (74-99) mg/dL POC Glucose (mg/dL) (75-99) mg/dL Hemoglobin A1c 6.6 H (0.0-6.0) % C-Reactive Protein (<1.0) mg/dL Urine Appearance Cloudy H (Clear) U Marijuana (THC) Screen Detected H (NotDetected) 06/21/21 06/22/21 06/22/21 Range/Units 20:12 06:08 08:09 Glucose (74-99) mg/dL POC Glucose (mg/dL) 101 H 124 H (75-99) mg/dL Hemoglobin A1c (0.0-6.0) % C-Reactive Protein 1.6 H (<1.0) mg/dL Urine Appearance (Clear) U Marijuana (THC) Screen (NotDetected) Thrombosis Risk Factor Assmnt - Choose All That Apply Any of the Below Risk Factors Present?: Yes Each Factor Represents 1 point: Obesity (BMI >25) Other Risk Factors: No Other congenital or acquired thrombophilia - If yes, enter type in comment: Yes Each Risk Factor Represents 5 Points: Stroke (< 1 month) Thrombosis Risk Factor Assessment Total Risk Factor Score: 6 Thrombosis Risk Factor Assessment Level: High Risk Assessment and Plan Time with Patient: Greater than 30
[2021-06-22] MEDS: MELATONIN 3 MG TABLET PO SCH (20:08)
[2021-06-22] MEDS: GABAPENTIN 400 MG CAP PO SCH (20:08)
[2021-06-22] MEDS ORDERED: ATORVASTATIN 40 MG TAB PO SCH (21:00)
[2021-06-23] MEDS: PANTOPRAZOLE 40 MG TABLET PO SCH (06:33)
[2021-06-23] MEDS: FLUTICASONE 50MCG/SPRAY NASAL 16GM EA NOSTRIL SCH (09:10)
[2021-06-23] MEDS: ASPIRIN 81 MG PO SCH (09:11)
[2021-06-23] MEDS: FENOFIBRATE 160 MG TAB PO SCH (09:11)
[2021-06-23] MEDS: CYCLOBENZAPRINE 10 MG TAB PO SCH (09:11)
[2021-06-23] MEDS: CLOPIDOGREL 75 MG TAB PO SCH (09:11)
[2021-06-23] MEDS: NICOTINE 14MG/24HR PATCH TRANSDERM SCH (09:11)
[2021-06-23] MEDS: SPIRONOLACTONE 25 MG TAB PO SCH (09:11)
[2021-06-23] MEDS: LORATADINE 10 MG TAB PO SCH (09:11)
[2021-06-23] MEDS: HEPARIN SODIUM,PORCINE/PF 5,000 UNIT/0.5 ML SYRINGE SQ SCH ×2 (09:15→20:51)
[2021-06-23] MEDS ORDERED: fentaNYL (PF) 50 MCG/ML 2 ML AMP ONE (09:57)
[2021-06-23] MEDS: BENZOCAINE SPRAY 1 CAN TOPICAL ONE ×2 (10:30→10:37)
[2021-06-23] MEDS ORDERED: IV FLUID CONTINUATION 500 ML IV ONE (10:36)
[2021-06-23] MEDS ORDERED: MIDAZOLAM HCL 10 MG/10 ML VIAL IV ONE (10:37)
[2021-06-23] MEDS ORDERED: fentaNYL (PF) 50 MCG/ML 2 ML AMP IV ONE (10:37)
--- NOTE | 2021-06-23 11:02 | P.TEE ---
Indications for Procedure(s): CVA Date of Procedure: 06/23/21 Preoperative Diagnosis: CVA, rule out cardiac source of emboli Postoperative Diagnosis: Questionable PFO with intermittent [id number] shunt Description of Procedure(s): INDICATION: This is a 41-year-old female who was admitted to the hospital with symptoms of CVA and MRI evidence of infarct suggestive possible embolic event. A WERNER examination is requested by neurology CONSENT: Informed verbal consent is obtained from the patient PROCEDURE:. The patient was brought to the lab in a fasting state. Patient was prepped and draped in the usual fashion. Patient was given 2 mg of Versed and 25 mics of fentanyl for sedation. A lubricated Omni probe was introduced into the oropharynx and was advanced into the esophagus. Multiple views were obtained. Color, pulsed and continuous Doppler studies were performed. Saline contrast bubble injection is done. Patient tolerated the procedure well. No immediate complications FINDINGS:. The aortic, mitral, tricuspid, spell appeared within normal. The left atrial appendage is free of any clot. The chamber sizes are within normal limits. The interatrial septum seemed to be intact. There appeared to be questionable intermittent shunt across the interatrial septum with [id number] shunt. Injection of the saline contrast bubbles did not show any crossing of bubbles. The left atrial appendage is free of any clot. The left ventricle function is normal IMPRESSION:. #1. No clot in the left atrial appendage. #2. Questionable intermittent cnku-id-gswue shunt across the interatrial septum. No crossing of bubbles with saline injection #3. Normal chamber sizes. #4. Normal valvular function. #5. Ascending aorta is normal PLAN: Second opinion regarding questionable shunt across the interatrial septum. Continue current medical therapy.
--- NOTE | 2021-06-23 11:38 | P.PN ---
Subjective Progress Note Date: 06/23/21 The patient is seen at bedside and feels about the same. Denies of any new neurological problems. She had MRI Brain and it's reported as subacute infarct primarily in the left frontal parietal location however small focus is present contralaterally, consider embolic phenomenon. I personally reviewed the MRI and I do feel like a subacute stroke the stroker is predominantly on the left frontal with parietal Association and has some right frontal as well as. MRA of the head is reported as finding correlate with previously described abnormalities on the CTA. There is artifact on exam. Consider vasculitis, chronic occlusion, embolic phenomena. No evidence of aneurysm, dissection. Objective - Vital Signs Vital signs: Vital Signs Temp 97.7 F 06/23/21 03:55 Pulse 101 H 06/23/21 03:55 Resp 16 06/23/21 03:55 BP 127/88 06/23/21 03:55 Pulse Ox 94 L 06/23/21 03:55 Intake & Output 06/22/21 06/23/21 06/23/21 18:59 06:59 18:59 Intake Total 200 0 Balance 200 0 Intake: Oral 200 0 Other: # Voids 1 1 1 - Exam GENERAL: The patient is an obese woman, lying in bed and is not in acute distress. She seems anxious. NEUROLOGICAL: Higher mental function: The patient is awake, alert, oriented to self, place and time. Patient is able to name (watch, pen and glasses). Patient is following simple commands. Expressive aphasia. No neglect. Cranial nerves: The pupils are round, equal and reactive to light and accommodation. Visual santillan are full to confrontation throughout. Extraocular movement is intact no nystagmus is noted. Facial sensation is normal to touch throughout. The facial strength is normal throughout. Hearing is normal bilaterally to hand rub. Tongue is midline and moved [id number] without any difficulty. No dysarthria is noted. Shoulder shrug is normal bilaterally. Motor: Gait is normal. The strength is right distal right upper extremity is 3- 4 (including hand rake operator). Proximal seemed 5-. Otherwise 5 over 5 throughout. Decrease tone over the right distal upper extremity. Otherwise normal tone and bulk. Cerebellum: Normal finger to nose heel to hernandez bilaterally. Sensation: Sensation is normal to touch throughout. Reflexes (right/left): 2+ throughout. Plantars are downgoing bilaterally. WORK-UP: Lipid panel is triglycerides 229, cholesterol 225, LDLs 134 and HDL 45. TSH is 1.80. Hemoglobin A1c 6.6 ESR is 14 (normal) CRP is 1.6 and the normal "supposed to be less than 1.0. ERASMO is negative PT, PTT in INR is within normal limits Urinalysis is negative for urinary tract infection. Urine drug screen is positive for marijuana otherwise the rest is nondetected and serum alcohol was less than 10. CT of the head is reported as there is focal decreased attenuation involving the left frontal lobe which may reflect acute CVA. Underlying lesion is difficult to exclude. Consider MRI correlation. I personally reviewed the CT of the head and there is a hypodensity over the left frontal region it is seems more subacute. Otherwise there is no acute or subacute ischemic or any interpretable hemorrhage that is noticeable. CT angiography of the head and neck was reported as suspected left frontal and left temporal acute to subacute infarct over the left MCA territory with reduced caliber of the left internal carotid artery terminus as well as the left MCA. This could represent either markedly reduced caliber of the left MCA versus complete occlusion with collateral. Recommend correlation with the patient's the medical history and presentation. Underlying arterial spasm or vasculitis cannot be excluded. Further MRI assessment can be considered if clinically re quired. She had MRI Brain and it's reported as subacute infarct primarily in the left frontal parietal location however small focus is present contralaterally, consider embolic phenomenon. I personally reviewed the MRI and I do feel like a subacute stroke the stroker is predominantly on the left frontal with parietal Association and has some right frontal as well as. MRA of the head is reported as finding correlate with previously described abnormalities on the CTA. There is artifact on exam. Consider vasculitis, chronic occlusion, embolic phenomena. No evidence of aneurysm, dissection. 2-D echo was reported as left ventricle size is normal. Ejection fraction of greater than 55%. Left atrial size is normal. Bubble study performed suboptimal. Dr. Aguilera (Stroke/Neurointerventionalist attending) who was contacted by the ED team and he reviewed the images of CTA and felt cannot rule out Moyamoya. No thrombectomy since outside 24 hour window. NIH 1 for aphasia per ED and no IV tpa since outside window (present 3 days out) and the risk outweigh the benefits. - Labs CBC & Chem 7: 06/21/21 13:43 06/21/21 13:43 Assessment and Plan Assessment: * Subacute ischemic stroke over left fronto/parietal and right frontal (has expressive aphasia and right hand weakness for the past 3-4 days prior to presentation to hospital "word finding difficulty). NIH 1. No IV tpa since outside window. Seems embolic in nature. It is felt by the neuro-intervention team that possibly patient has ?Moyamoya disease * Reported left ICA/MCA stenosis on imaging (CTA and MRA0. * Diabetes mellitus and most recent hemoglobin A1c is 6.6 * Dyslipidemia (newly diagnosed during this admission) * Hypertension and during this presentation her blood pressure slightly elevated * Bilateral carpal tunnel syndrome (right > left) * Peripheral neuropathy * Obesity * Tobacco use (/2 PPD) Plan: * Dr. Aguilera (Stroke/Neurointerventionalist attending) who reviewed the images a nd felt cannot rule out Moyamoya. Patient to follow-up with Dr. Aguilera as an outpatient for further management (possible diagnostic cerebral angiogram) and his team will coordinate the follow-up. * Continue aspirin the 81 mg and Plavix 75 mg daily (not on any antiplatelets at home). Patient is to be on dual antiplatelets for short duration (1-3 months and after that to stop Plavix and continue ASA indefidently. Will have patient follow-up with Dr. Aguilera within 1-2 weeks and will defer the final dose of stopping of dual antiplatelets). Increased Lipitor from 40mg to 80 daily at bedtime for secondary stroke prophylaxis * 2D echo with bubble study: The bubble study is suboptimal. I consulted cardiology team for WERNER and event monitor. * I ordered antithrombin III antigen antibody, factor V Leiden mutation, lupus anticoagulant. Recommend consideration of further hypercoagulable workup as a n outpatient * I ordered venous duplex of the upper and lower extremities to rule out DVTs because of the embolic phenomena and they're both reported as negative. * Continue neuro checks * Patient is on cardiac monitoring * PT, OT and [employer] is consulted * Patient is counseled on tobacco cessation * Patient denies being on any control. She was informed to avoid estrogen as contraceptive but continues progesterone. * We'll defer the rest of the medical management to the primary team. * For DVT prophylaxis: On subq heparin 5000U every 12 hours. * Upon discharge recommend the patient follow up with a neurologist as an outpatient within 1-2 weeks. Follow-up with Dr. Aguilera (Melanie Alcantara at [phone]) within 1-2 weeks. UPDATE: Transesophageal echocardiogram was reported as no clot in the left atrial appendage. Questionable intermittent left to right shunt across that intra- arterial septum. No crossing of bubble with saline injection. Normal chamber. Normal valvular function. Ascending aorta is normal. Second opinion regarding questionable shunt across the interatrial septum. Continue current medical management. Recommended that event monitor or loop recorder prior the patient's discharge. Cardiology will re-review the WERNER. Otherwise no further neurological work-up as inpatient. The plan is discussed with the patient and her nurse. Salo Briscoe M.D. Neuro-Hospitalist Time with Patient: Less than 30
[2021-06-23 12:02] LABS: APTT 64 Sec(s) (<43); APTT 1:1 Mix 52 Sec(s) (<43); DRVVT 1:1 Mix 41 Sec(s) (<44); Dilute Russell Viper Venom 51 Sec(s) (<44); Hexagonal Phase Neutralization Positive (Negative)
--- NOTE | 2021-06-23 13:29 | P.PN ---
Progress Note - Text WERNER noted No clear-cut [id number]-gq-jnyo shunt with saline agitated contrast No cardiac thrombus Await venous Doppler results May consider intracardiac echo with saline agitated contrast to evaluate the interatrial septum Will see the patient and discuss further plan
--- NOTE | 2021-06-23 13:56 | US ---
EXAMINATION TYPE: US venous doppler duplex LE BI DATE OF EXAM: 06/23/2021 12:09 PM COMPARISON: NONE CLINICAL HISTORY: embolic stroke. +PFO. Rule out stroke. SIDE PERFORMED: Bilateral TECHNIQUE: The lower extremity deep venous system is examined utilizing real time linear array sonog olga with graded compression, doppler sonography and color-flow sonography. VESSELS IMAGED: Common Femoral Vein Deep Femoral Vein Greater Saphenous Vein * Femoral Vein Popliteal Vein Small Saphenous Vein * Proximal Calf Veins (* superficial vessels) Right Leg: Negative for DVT Left Leg: Negative for DVT IMPRESSION: Grayscale, color doppler, spectral doppler imaging performed of the deep veins of the lo wer extremities. There is normal flow, compressibility, vascular waveforms. No evidence of DVT of t he lower extremities.
--- NOTE | 2021-06-23 14:32 | US ---
EXAMINATION TYPE: US venous doppler duplex UE BI DATE OF EXAM: 06/23/2021 COMPARISON: NONE CLINICAL HISTORY: embolic stroke. +PFO. SIDE PERFORMED: Bilateral The following veins were assessed bilaterally: Inferior aspect of the internal jugular vein. Subclavian vein. Axillary vein. Brachial vein. Cephalic and basilic veins. Ulnar and radial veins. Right Arm: Negative for DVT Left Arm: Negative for DVT IMPRESSION: Grayscale, color doppler, spectral doppler imaging performed of the deep veins of the upper extremiti es. There is normal flow, compressibility and vascular waveforms. No evidence of DVT of the upper extremities.
--- NOTE | 2021-06-23 15:58 | P.PN ---
Subjective Progress Note Date: 06/23/21 this is a 41-year-old female who presents to the emergency room with complaints of difficulty finding words over the last 3 days. States some slurred speech difficulty with pronunciation, Reports difficulty finding her words and reports right upper extremity weakness. Patient was a code stroke in the EC however was outside of the window for TPA infusion. Past medical history includes borderline diabetes, hypertension, recent diagnosis of right hand carpal tunnel 2 weeks ago with weakness and decreased senior producer strength on the right side. Patient has anxiety/depression/PTSD is a current daily smoker smokes about 1 to 1/2 packs per day, also daily marijuana use. There is a family history for stroke, her mother had one in her 60s. Patient has recently started gabapentin for carpal tunnel and chronic neuropathy in her legs and was questioning if this is causing symptoms. Rachel follows with Dr Mane and Dr Witt in the outpatient setting. Patient admitted to the hospital with neurology consultation. Patient started on aspirin Plavix combination as well as lipitor. Takes lobfibra at home. Patient counseled extensively on the importance of nicotine cessation, weight loss, following appropriate diabetic medications and blood glucose monitoring. Chest x-ray negative for acute findings labs on admission unremarkable, glucose in the 120s, hemoglobin A1c 6.6, troponin negative, CRP 1.6, TSH 1.8-0, liver enzymes within normal limits. Urinalysis negative, urine drug toxicology negative with exception of marijuana. Lipid panel Tirglycerides 229, cholesterol 225, LDL 134, HDL 45 EKG shows sinus tachycardia heart rate 110 with a QT interval 385, no ST or T- wave abnormalities evident. Brain CT shows a focal decreased attenuation left frontal lobe which may reflect acute CVA with underlying lesion difficult to exclude CT angiography showed suspected left frontal and left temporal acute to subacute infarcts in the left MCA territory with reduced caliber of left internal carotid artery terminus as well as left MCA. Markedly reduced caliber of left MCA versus complete occlusion with collaterals. Underlying arterial spasm or vasculitis cannot be excluded. Additional findings in report. Brain MRI shows subacute infarct in the left frontoparietal location however small focus is present contralaterally, consider embolic phenomenon MRA shows similar findings consider vasculitis, chronic occlusion, embolic phenomenon. Pt afebrile, heart rate 94, blood pressure 144/96, 96% room air. 06/23/2021 Patient evaluated today at the bedside still with slight right facial droop, right upper extremity weakness, and expressive aphsia. Today she states that she remembers about 1 week ago prior to going to sleep she felt "buzzing" throughout the right side of her body, went to sleep and sensation was gone in the morning. Patient frustrated and tearful today. Thought she was going home, plan is for review tomorrow by cardiology and patient will need a loop recorder/or event monitor prior to discharge. Reports difficulty sleeping last night, would like something to help her sleep. Also requesting an increase in nicotine patch strength. ERASMO negative. Blood glucose controlled in the 90s. CRP 1.6. Patient will need to follow with speech therapy 3 to 5 times per week on discharge, they are recommending inpatient rehab. Upper and lower extremity venous doppler negative. WERNER shows no clot in left atrial appendage, questionable intermittent left to right shunt across the interarterial septum with no crossing of bubbles with saline injection. Normal valvular function. Per cardiology notes a intracardiac echo with saline agitated contrast might be considered, reevaluation of patient tomorrow. Being followed closely by neurology services. Upon leaving room, patient pushed her bedside table across the room into the sink, spilled water everywhere and was crying and tearful and stating "I just want to go home." Vitals reviewed: Pt afebrile, tachycardia HR 108, blood pressure 147/94, 95% on room air. REVIEW OF SYSTEMS: CONSTITUTIONAL: No fever, no malaise, no fatigue. HEENT: No recent visual problems or hearing problems. Denied any sore throat. CARDIOVASCULAR: No chest pain, orthopnea, PND, no palpitations, no syncope. PULMONARY: No shortness of breath, no cough, no hemoptysis. GASTROINTESTINAL: No diarrhea, no nausea, no vomiting, no abdominal pain. NEUROLOGICAL: No headaches, reports slurred speech, difficulty finding words, and right sided weakness onset 3 days ago All current medications reviewed and appropriate. PHYSICAL EXAMINATION: GENERAL: The patient is alert and oriented x3, not in any acute distress. Well developed, well nourished. Obese HEENT: Pupils are round and equally reacting to light. EOMI. No scleral icterus. No conjunctival pallor. Normocephalic, atraumatic. No pharyngeal erythema. No thyromegaly. CARDIOVASCULAR: S1 and S2 present. No murmurs, rubs, or gallops. PULMONARY: Chest is clear to auscultation, no wheezing or crackles. ABDOMEN: Soft, nontender, nondistended, normoactive bowel sounds. No palpable organomegaly. MUSCULOSKELETAL: No joint swelling or deformity. EXTREMITIES: No cyanosis, clubbing, or pedal edema. NEUROLOGICAL: Right upper extremity weakness, no drift however hand grasp with weakened strength, lower extremity equal, expressive aphasia SKIN: No rashes. Assessment and Plan Assessment Subacute ischemic stroke with symptoms of broca aphasia, right upper extremity weakness, slight right facial droop, rule out embolic component questionable left to right atrial shunt on WERNER Today. Hypertension Tachycardia, patient with some acute agitation, start ativan continue cardiac monitoring Diabetes mellitus type 2 with hgb A1c of 6.6 Elevated inflammatory markers Recent diagnosis carpal tunnel right wrist Peripheral neuropathy, started on gabapentin recently Obesity Chronic daily nicotine use: counseling provided Marijuana use GI Prophylaxis: Protonix DVT Prophylaxis: Subcu heparin Full Code Plan Add ativan for agitation Cardiology re-eval tomorrow Needs loop recorder / event monitor on discharge Continue neuro checks Speech therapy evaluation Nicotine patch Continue all other supportive care Discharge planning; home with HC will need ongoing speech therapy Objective - Vital Signs Vital signs: Vital Signs Temp 97.7 F 06/23/21 08:00 Pulse 108 H 06/23/21 12:00 Resp 18 06/23/21 12:00 BP 147/94 06/23/21 12:00 Pulse Ox 95 06/23/21 12:00 Intake & Output 06/22/21 06/23/21 06/23/21 18:59 06:59 18:59 Intake Total 200 100 Balance 200 100 Intake: IV 100 Oral 200 0 Other: # Voids 1 1 1 - Labs CBC & Chem 7: 06/21/21 13:43 06/21/21 13:43 Labs: Abnormal Lab Results - Last 24 Hours (Table) 06/22/21 Range/Units 08:09 Lupus Anticoag aPTT 64 H (<43) Sec(s) Lupus Anticoag PTT Mix 52 H (<43) Sec(s) Dil Gamaliel Viper Venom 51 H (<44) Sec(s) Lupus Hexagonal Phase Positive A (Negative) Assessment and Plan Time with Patient: Greater than 30
[2021-06-23] MEDS: GABAPENTIN 400 MG CAP PO SCH (20:51)
[2021-06-23] MEDS: NICOTINE 21MG/24HR PATCH TRANSDERM SCH (20:51)
[2021-06-23] MEDS: ATORVASTATIN 80 MG TAB PO SCH (20:51)
[2021-06-23] MEDS: LORazepam 0.5 MG TAB PO PRN (20:51)
[2021-06-23] MEDS: MELATONIN 3 MG TABLET PO SCH (20:51)
[2021-06-23] MEDS ORDERED: ACETAMINOPHEN TAB 325 MG TAB PO PRN (20:59)
[2021-06-24] MEDS: SODIUM CHLORIDE 0.9% 1,000 ML IV SCH ×2 (00:34→08:27)
[2021-06-24] MEDS: PANTOPRAZOLE 40 MG TABLET PO SCH (06:37)
[2021-06-24] MEDS: LORATADINE 10 MG TAB PO SCH (08:26)
[2021-06-24] MEDS: FENOFIBRATE 160 MG TAB PO SCH (08:26)
[2021-06-24] MEDS: CLOPIDOGREL 75 MG TAB PO SCH (08:26)
[2021-06-24] MEDS: CYCLOBENZAPRINE 10 MG TAB PO SCH (08:26)
[2021-06-24] MEDS: SPIRONOLACTONE 25 MG TAB PO SCH (08:26)
[2021-06-24] MEDS: ASPIRIN 81 MG PO SCH (08:26)
[2021-06-24] MEDS: LORazepam 0.5 MG TAB PO PRN ×3 (08:26→22:46)
[2021-06-24] MEDS: NICOTINE 21MG/24HR PATCH TRANSDERM SCH (08:26)
[2021-06-24] MEDS: HEPARIN SODIUM,PORCINE/PF 5,000 UNIT/0.5 ML SYRINGE SQ SCH ×2 (08:26→21:05)
[2021-06-24] MEDS: FLUTICASONE 50MCG/SPRAY NASAL 16GM EA NOSTRIL SCH (08:27)
[2021-06-24 08:32] LABS: Basophils % (A) 0 %; Eosinophils # (A) 0.1 k/uL (0-0.7); Eosinophils % (A) 2 %; HCT 49.1 % (34.0-46.0); HGB 16.5 gm/dL (11.4-16.0); Lymphocytes # (A) 2.5 k/uL (1.0-4.8); Lymphocytes % (A) 29 %; MCH 31.9 pg (25.0-35.0); MCHC 33.5 g/dL (31.0-37.0); MCV 95.1 fL (80.0-100.0); Mean Platelet Volume 6.6; Monocytes # (A) 0.4 k/uL (0-1.0); Monocytes % (A) 4 %; Neutrophils # (A) 5.5 k/uL (1.3-7.7); Neutrophils % (A) 63 %; Platelet Count 321 k/uL (150-450); RBC 5.16 m/uL (3.80-5.40); RDW 13.1 % (11.5-15.5); WBC 8.7 k/uL (3.8-10.6)
[2021-06-24 08:35] LABS: Calcium 9.6 mg/dL (8.4-10.2); Potassium 5.2 mmol/L (3.5-5.1)
--- NOTE | 2021-06-24 13:00 | P.PN ---
Subjective Progress Note Date: 06/24/21 The patient is seen at bedside and feels about the same. She denies of any new neurological problems. Objective - Vital Signs Vital signs: Vital Signs Temp 97.9 F 06/24/21 12:32 Pulse 104 H 06/24/21 12:32 Resp 18 06/24/21 12:32 BP 142/105 06/24/21 12:32 Pulse Ox 97 06/24/21 12:32 Intake & Output 06/23/21 06/24/21 06/24/21 18:59 06:59 18:59 Intake Total 100 540 118 Balance 100 540 118 Intake: IV 100 Oral 0 540 118 Other: Voiding Method Toilet Toilet # Voids 1 3 1 # Bowel Movements 0 1 - Exam GENERAL: The patient is an obese woman, lying in bed and is not in acute distress. She seems anxious. NEUROLOGICAL: Higher mental function: The patient is awake, alert, oriented to self, place and time. Patient is able to name (watch, pen and glasses). Patient is following simple commands. Expressive aphasia. No neglect. Cranial nerves: The pupils are round, equal and reactive to light and accommodation. Visual santillan are full to confrontation throughout. Extraocular movement is intact no nystagmus is noted. Facial sensation is normal to touch throughout. The facial strength is normal throughout. Hearing is normal bilaterally to hand rub. Tongue is midline and moved [id number] without any difficulty. No dysarthria is noted. Shoulder shrug is normal bilaterally. Motor: Gait is normal. The strength is right distal right upper extremity is 3- 4 (including hand spring inspector). Proximal seemed 5-. Otherwise 5 over 5 throughout. Decrease tone over the right distal upper extremity. Otherwise normal tone and bulk. Cerebellum: Normal finger to nose heel to hernandez bilaterally. Sensation: Sensation is normal to touch throughout. Reflexes (right/left): 2+ throughout. Plantars are downgoing bilaterally. WORK-UP: Lipid panel is triglycerides 229, cholesterol 225, LDLs 134 and HDL 45. TSH is 1.80. Hemoglobin A1c 6.6 ESR is 14 (normal) CRP is 1.6 and the normal "supposed to be less than 1.0. ERASMO is negative It seems the Lupus anticoagulant testing seems elevated Antithrombin III antigen is 94 which is within normal limits. PT, PTT in INR is within normal limits Urinalysis is negative for urinary tract infection. Urine drug screen is positive for marijuana otherwise the rest is nondetected and serum alcohol was less than 10. CT of the head is reported as there is focal decreased attenuation involving the left frontal lobe which may reflect acute CVA. Underlying lesion is difficult to exclude. Consider MRI correlation. I personally reviewed the CT of the head and there is a hypodensity over the left frontal region it is seems more subacute. Otherwise there is no acute or subacute ischemic or any interpretable hemorrhage that is noticeable. CT angiography of the head and neck was reported as suspected left frontal and left temporal acute to subacute infarct over the left MCA territory with reduced caliber of the left internal carotid artery terminus as well as the left MCA. This could represent either markedly reduced caliber of the left MCA versus complete occlusion with collateral. Recommend correlation with the patient's the medical history and presentation. Underlying arterial spasm or vasculitis cannot be excluded. Further MRI assessment can be considered if clinically required. She had MRI Brain and it's reported as subacute infarct primarily in the left frontal parietal location however small focus is present contralaterally, consider embolic phenomenon. I personally reviewed the MRI and I do feel like a subacute stroke the stroker is predominantly on the left frontal with parietal Association and has some right frontal as well as. MRA of the head is reported as finding correlate with previously described abnormalities on the CTA. There is artifact on exam. Consider vasculitis, chronic occlusion, embolic phenomena. No evidence of aneurysm, dissection. 2-D echo was reported as left ventricle size is normal. Ejection fraction of greater than 55%. Left atrial size is normal. Bubble study performed suboptimal. Transesophageal echocardiogram was reported as no clot in the left atrial appendage. Questionable intermittent left to right shunt across that intra- arterial septum. No crossing of bubble with saline injection. Normal chamber. Normal valvular function. Ascending aorta is normal. Second opinion regarding questionable shunt across the interatrial septum. Continue current medical management. Venous duplex of the upper and lower extremities to rule out DVTs because of the embolic phenomena and they're both reported as negative. Dr. Aguilera (Stroke/Neurointerventionalist attending) who was contacted by the ED team and he reviewed the images of CTA and felt cannot rule out Moyamoya. No thrombectomy since outside 24 hour window. NIH 1 for aphasia per ED and no IV tpa since outside window (present 3 days out) and the risk outweigh the benefits. - Labs CBC & Chem 7: 06/24/21 07:57 06/24/21 07:57 Labs: Abnormal Lab Results - Last 24 Hours (Table) 06/24/21 06/24/21 Range/Units 07:57 07:57 Hgb 16.5 H (11.4-16.0) gm/dL Hct 49.1 H (34.0-46.0) % Potassium 5.2 H (3.5-5.1) mmol/L BUN 20 H (7-17) mg/dL Glucose 117 H (74-99) mg/dL Assessment and Plan Assessment: * Subacute ischemic stroke over left fronto/parietal and right frontal (has expressive aphasia and right hand weakness for the past 3-4 days prior to presentation to hospital "word finding difficulty). NIH 1. No IV tpa since outside window. Seems embolic in nature. It is felt by the neuro-intervention team that possibly patient has ?Moyamoya disease. Her lupus anticoagulant testing seems elevated. * Reported left ICA/MCA stenosis on imaging (CTA and MRA0. * Diabetes mellitus and most recent hemoglobin A1c is 6.6 * Dyslipidemia (newly diagnosed during this admission) * Hypertension and during this presentation her blood pressure slightly elevated * Bilateral carpal tunnel syndrome (right > left) * Peripheral neuropathy * Obesity * Tobacco use (1/2 PPD) Plan: * Dr. Aguilera (Stroke/Neurointerventionalist attending) who reviewed the images and felt cannot rule out Moyamoya. Patient to follow-up with Dr. Aguilera as an outpatient for further management (possible diagnostic cerebral angiogram) and his team will coordinate the follow-up. * Continue aspirin the 81 mg and Plavix 75 mg daily (not on any antiplatelets at home). Patient is to be on dual antiplatelets for short duration (1-3 months and after that to stop Plavix and continue ASA indefidently. Will have patient follow-up with Dr. Aguilera within 1-2 weeks and will defer the final dose of stopping of dual antiplatelets). Increased Lipitor from 40mg to 80 daily at bedtime for secondary stroke prophylaxis * Transesophageal echocardiogram was reported as no clot in the left atrial appendage. Questionable intermittent left to right shunt across that intra- arterial septum. No crossing of bubble with saline injection. Normal chamber. Normal valvular function. Ascending aorta is normal. Second opinion regarding questionable shunt across the interatrial septum. Continue current medical management. * Cardiology team is consulted for event monitor. Also pending final input regarding if patient does have shunt or not on WERNER. * Pending factor V Leiden mutation. Her lupus workup (anticoag pTT, hexagonal phase, rullell viper. ERASMO is negative), therefore consulted hematology. Possible consideration of further hypercoagulable workup as an outpatient * Continue neuro checks * Patient is on cardiac monitoring * PT, OT and APPLICATION PENETRATION TESTER is consulted * Patient is counseled on tobacco cessation * Patient denies being on any control. She was informed to avoid estrogen as contraceptive but continues progesterone. * We'll defer the rest of the medical management to the primary team. * For DVT prophylaxis: On subq heparin 5000U every 12 hours. * Upon discharge recommend the patient follow up with a neurologist as an outpatient within 1-2 weeks. Follow-up with Dr. Aguilera ([facility] at [phone]) within 1-2 weeks. The plan is discussed with the patient and her nurse. Salo Briscoe M.D. Neuro-Hospitalist Time with Patient: Less than 30
--- NOTE | 2021-06-24 14:24 | P.PN ---
Subjective Progress Note Date: 06/24/21 This is Nathanael santana NP, I'm dictating on behalf of Dr. Murray's H&P and A&P. Patient was interviewed and examined. Patient is a pleasant 41-year-old female who initially presented to the hospital with subacute CVA. Patient today reports that she feels good. She denies chest pain, shortness of breath, heart palpitations. Reviewed patient's labs as demonstrates the patient is positive for lupus coagulopathy. Patient had a WERNER that was mildly suspicious for possible PFO. Patient had venous Dopplers of the upper and lower extremities completed, which demonstrated no evidence of DVT. GENERAL: Well-appearing, well-nourished and in no acute distress. NECK: Supple without JVD or thyromegaly. LUNGS: Breath sounds clear to auscultation bilaterally. Respiration equal and unlabored. No wheezes, rales or rhonchi. HEART: Heart rate tachycardic, regular rhythm without murmurs, rubs or gallops. S1 and S2 heard. EXTREMITIES: Normal range of motion, no edema. No clubbing or cyanosis. Peripheral pulses intact and strong. VITALS: Temp 97.9, pulse 104, respirations 18, blood pressure 142/105, O2 saturation 97% on room air TELEMETRY: Normal sinus rhythm LABS: Blood cell count 8.7, hemoglobin 16.5, platelets 321, sodium 139, potassium 5.2, B1 20, creatinine 0.97, IMPRESSION/PLAN: 1. 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 Please follow recommendations from hematology. 2. Suspicion for PFO-will hold off on intracardiac echo for now. Once patient is adequately anticoagulated and has that under control, she can pursue further evaluation. Please do not hesitate to contact us if further recommendations are needed. Objective - Vital Signs Vital signs: Vital Signs Temp 97.9 F 06/24/21 12:32 Pulse 104 H 06/24/21 12:32 Resp 18 06/24/21 12:32 BP 142/105 06/24/21 12:32 Pulse Ox 97 06/24/21 12:32 Intake & Output 06/23/21 06/24/21 06/24/21 18:59 06:59 18:59 Intake Total 100 540 236 Balance 100 540 236 Intake: IV 100 Oral 0 540 236 Other: Voiding Method Toilet Toilet # Voids 1 3 1 # Bowel Movements 0 1 - Labs CBC & Chem 7: 06/24/21 07:57 06/24/21 07:57 Labs: Abnormal Lab Results - Last 24 Hours (Table) 06/24/21 06/24/21 Range/Units 07:57 07:57 Hgb 16.5 H (11.4-16.0) gm/dL Hct 49.1 H (34.0-46.0) % Potassium 5.2 H (3.5-5.1) mmol/L BUN 20 H (7-17) mg/dL Glucose 117 H (74-99) mg/dL
[2021-06-24] MEDS ORDERED: HYDROcodone/APAP 5-325MG 1 EACH TAB PO PRN (15:09)
--- NOTE | 2021-06-24 15:20 | P.PN ---
Subjective Progress Note Date: 06/24/21 this is a 41-year-old female who presents to the emergency room with complaints of difficulty finding words over the last 3 days. States some slurred speech difficulty with pronunciation, Reports difficulty finding her words and reports right upper extremity weakness. Patient was a code stroke in the EC however was outside of the window for TPA infusion. 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 Patient has anxiety/depression/PTSD is a current daily smoker smokes about 1 to 1/2 packs per day, also daily marijuana use. There is a family history for stroke, her mother had one in her 60s. Patient has recently started gabapentin for carpal tunnel and chronic neuropathy in her legs and was questioning if this is causing symptoms. Rachel follows with Dr Mane and Dr Witt in the outpatient setting. Patient admitted to the hospital with neurology consultation. Patient started on aspirin Plavix combination as well as lipitor. Takes lobfibra at home. Patient counseled extensively on the importance of nicotine cessation, weight loss, following appropriate diabetic medications and blood glucose monitoring. Chest x-ray negative for acute findings labs on admission unremarkable, glucose in the 120s, hemoglobin A1c 6.6, troponin negative, CRP 1.6, TSH 1.8-0, liver enzymes within normal limits. Urinalysis negative, urine drug toxicology negative with exception of marijuana. Lipid panel Tirglycerides 229, cholesterol 225, LDL 134, HDL 45 EKG shows sinus tachycardia heart rate 110 with a QT interval 385, no ST or T- wave abnormalities evident. Brain CT shows a focal decreased attenuation left frontal lobe which may reflect acute CVA with underlying lesion difficult to exclude CT angiography showed suspected left frontal and left temporal acute to subacute infarcts in the left MCA territory with reduced caliber of left internal carotid artery terminus as well as left MCA. Markedly reduced caliber of left MCA versus complete occlusion with collaterals. Underlying arterial spasm or vasculitis cannot be excluded. Additional findings in report. Brain MRI shows subacute infarct in the left frontoparietal location however small focus is present contralaterally, consider embolic phenomenon MRA shows similar findings consider vasculitis, chronic occlusion, embolic phenomenon. Pt afebrile, heart rate 94, blood pressure 144/96, 96% room air. 06/23/2021 Patient evaluated today at the bedside still with slight right facial droop, right upper extremity weakness, and expressive aphsia. Today she states that she remembers about 1 week ago prior to going to sleep she felt "buzzing" throughout the right side of her body, went to sleep and sensation was gone in the morning. Patient frustrated and tearful today. Thought she was going home, plan is for review tomorrow by cardiology and patient will need a loop recorder/or event monitor prior to discharge. Reports difficulty sleeping last night, would like something to help her sleep. Also requesting an increase in nicotine patch strength. ERAMSO negative. Blood glucose controlled in the 90s. CRP 1.6. Patient will need to follow with speech therapy 3 to 5 times per week on discharge, they are recommending inpatient rehab. Upper and lower extremity venous doppler negative. WERNER shows no clot in left atrial appendage, questionable intermittent left to right shunt across the interarterial septum with no crossing of bubbles with saline injection. Normal valvular function. Per cardiology notes a intracardiac echo with saline agitated contrast might be considered, reevaluation of patient tomorrow. Being followed closely by neurology services. Upon leaving room, patient pushed her bedside table across the room into the sink, spilled water everywhere and was crying and tearful and stating "I just want to go home." Vitals reviewed: Pt afebrile, tachycardia HR 108, blood pressure 147/94, 95% on room air. 06/24/2021 Patient evaluated today sitting up in the chair. She states she slept well last night and the ativan is working, she feels less anxious today. Also feels better with the increase in nicotine patch. Patient does complain of a 3/10 headache dull ache to the frontal lobe and also states she feels some sinus congestion. She is on claritin, and flonase, with tylenol as needed for pain. She does complain also of chronic mid back pain about a 7/10 non radiating and achy. She was taking motrin 800 at home. Patient also states that she has not had a menstrual period since October of last year, last seen by OBGYN in July 2020 underwent routine pap and pelvic exam were negative as far as patient remembers. She does state she has PCOS, and she states she would like to have a child of her own with her fiancee. Urine HCG negative. Patient will need follow up with OBGYN in the office after discharge. Per cardiology no further work up for the questionable left to right shunt for now, as her lupus anticoag markers elevated with negative ERASMO, hematology was consulted for further review and patient will need anticoagulation. Patient continues on aspirin, plavix, and lipitor. court recording monitor reviewed, patient has been sinus rhythm to sinus tach, no evidence for arrythmia. She will receive a holter monitor on discharge being arranged by cardiology. Blood pressure elevated today 142/105, 97% on room air, afebrile. Labs today hemoglobin 16.5, sodium 139, potassium 5.2, BUN 20, creatinine 0.97, glucose 117. REVIEW OF SYSTEMS: CONSTITUTIONAL: No fever, no malaise, no fatigue. HEENT: No recent visual problems or hearing problems. Denied any sore throat. CARDIOVASCULAR: No chest pain, orthopnea, PND, no palpitations, no syncope. PULMONARY: No shortness of breath, no cough, no hemoptysis. GASTROINTESTINAL: No diarrhea, no nausea, no vomiting, no abdominal pain. NEUROLOGICAL: Reports mild 3/10 dull ache frontal lobe, reports slurred speech, difficulty finding words, and right sided weakness. All current medications reviewed and appropriate. PHYSICAL EXAMINATION: GENERAL: The patient is alert and oriented x3, not in any acute distress. Well developed, well nourished. Obese HEENT: Pupils are round and equally reacting to light. EOMI. No scleral icterus. No conjunctival pallor. Normocephalic, atraumatic. No pharyngeal erythema. No thyromegaly. CARDIOVASCULAR: S1 and S2 present. No murmurs, rubs, or gallops. PULMONARY: Chest is clear to auscultation, no wheezing or crackles. ABDOMEN: Soft, nontender, nondistended, normoactive bowel sounds. No palpable organomegaly. MUSCULOSKELETAL: No joint swelling or deformity. EXTREMITIES: No cyanosis, clubbing, or pedal edema. NEUROLOGICAL: Right upper extremity weakness, no drift however hand grasp with weakened strength, lower extremity equal, expressive aphasia SKIN: No rashes. Assessment and Plan Assessment Subacute ischemic stroke with symptoms of broca aphasia, right upper extremity w eakness, slight right facial droop Lupus coagulopathy, hematology consulted, pending further work up Hyperkalemia, 5.2 today, aldactone held, repeat tomorrow Hypertension, cont to monitor Possible PFO, further work up from cardiology once medically stable on anticoagulation Tachycardia, started low dose metoprolol Diabetes mellitus type 2 with hgb A1c of 6.6 Elevated inflammatory markers Recent diagnosis carpal tunnel right wrist Peripheral neuropathy, started on gabapentin recently Obesity Chronic daily nicotine use: counseling provided Marijuana use GI Prophylaxis: Protonix DVT Prophylaxis: Subcu heparin Full Code Plan Hematology consultation Needs loop recorder / event monitor on discharge Continue neuro checks Speech therapy evaluation Nicotine patch Continue all other supportive care Discharge planning; home with HC will need ongoing speech therapy Objective - Vital Signs Vital signs: Vital Signs Temp 97.9 F 06/24/21 12:32 Pulse 104 H 06/24/21 12:32 Resp 18 06/24/21 12:32 BP 142/105 06/24/21 12:32 Pulse Ox 97 06/24/21 12:32 Intake & Output 06/23/21 06/24/21 06/24/21 18:59 06:59 18:59 Intake Total 100 540 236 Balance 100 540 236 Intake: IV 100 Oral 0 540 236 Other: Voiding Method Toilet Toilet # Voids 1 3 1 # Bowel Movements 0 1 - Labs CBC & Chem 7: 06/24/21 07:57 06/24/21 07:57 Labs: Abnormal Lab Results - Last 24 Hours (Table) 06/24/21 06/24/21 Range/Units 07:57 07:57 Hgb 16.5 H (11.4-16.0) gm/dL Hct 49.1 H (34.0-46.0) % Potassium 5.2 H (3.5-5.1) mmol/L BUN 20 H (7-17) mg/dL Glucose 117 H (74-99) mg/dL Assessment and Plan Time with Patient: Greater than 30
--- NOTE | 2021-06-24 18:02 | P.CRDCN ---
History of Present Illness History of present illness: This is Dr. Murray dictating an H/P on this patient The patient was interviewed and examined IMPRESSION / ASSESSMENT: Embolic CVA in a 41-year-old female with diabetes and hypertension and a history of smoking Evaluate for causes of embolic thromboembolism in a young patient including coagulation/coagulopathy workup, vascular to smoke up and evaluate for venous thrombosis with associated PFO PLAN: WERNER Venous Dopplers of the extremities Coagulopathy workup HPI 41-year-old female presented with weakness of the pincer infusion nurse as well as his speech disturbance She has a history of diabetes and hypertension She is a current smoker Denies any palpitations denies any chest discomfort no loss of consciousness ROS: No fever chills or rigors, no cough, phlegm or expectoration, no nausea, vomiting or diarrhea, no hematuria, dysuria, no musculoskeletal complaints, no strokes or seizures, no skin lesions. EXAMINATION: Blood pressure 136/82 mmHg Pulse rate 90-100 beats a minute sinus mechanism Normal breath sounds no rhonchi no crackles Normal heart sounds no murmurs or gallops No carotid bruits REVIEW OF LABS, ECG & MEDICAL DATA Brain MRI suggest acute CVA involving left frontal lobe Left temporal and left frontal acute to subacute infarct in the left MCA territory with reduced caliber of the left internal carotid artery terminus Twelve-lead EKG shows sinus rhythm normal [place] narrow QRS normal ST segments 2-D echo shows normal LV systolic function and a bubble study that was suboptimal T subsequently showed no clear-cut evidence for [id number] shunt Possible [id number] shunt this was questionable No intracardiac mass Brain MRI subacute infarct left frontoparietal However there is a small focus present contralaterally, consider embolic phenomena No DVT in the upper extremities or the lower extremities Past Medical History Past Medical History: Diabetes Mellitus, Hypertension Additional Past Medical History / Comment(s): Patient states she was prediabetic, neuropathy. History of Any Multi-Drug Resistant Organisms: None Reported Past Surgical History: No Surgical Hx Reported Past Anesthesia/Blood Transfusion Reactions: No Reported Reaction Past Psychological History: Anxiety, Depression, PTSD Smoking Status: Current every day smoker Past Alcohol Use History: None Reported Past Drug Use History: Marijuana - Past Family History Mother Family Medical History: Coronary Artery Disease (CAD), CVA/TIA Father Family Medical History: Seizure Disorder Medications and Allergies Home Medications Medication Instructions Recorded Confirmed Type Albuterol Sulfate [Proair Hfa] 2 puff INHALATION RT-Q4H PRN 06/21/21 06/21/21 History Cyclobenzaprine [Flexeril] 10 mg PO DAILY 06/21/21 06/21/21 History Erythromycin Topical [Erythromycin 1 applic TOPICAL DAILY PRN 06/21/21 06/21/21 History 2% Topical Soln] Fenofibrate [Lofibra] 160 mg PO DAILY 06/21/21 06/21/21 History Fluticasone Nasal [place] [Flonase 2 spr EA NOSTRIL DAILY 06/21/21 06/21/21 Hist ory Nasal [place]] Gabapentin [Neurontin] 400 mg PO HS 06/21/21 06/21/21 History Ibuprofen [Motrin] 800 mg PO TID 06/21/21 06/21/21 History RX: Loratadine 10 mg PO DAILY 06/21/21 06/21/21 History RX: Magnesium Oxide 400 mg PO DAILY 06/21/21 06/21/21 History RX: Melatonin 3 mg PO HS 06/21/21 06/21/21 History RX: Omeprazole 40 mg PO DAILY 06/21/21 06/21/21 History Spironolactone [Aldactone] 50 mg PO DAILY 06/21/21 06/21/21 History Allergies Allergy/AdvReac Type Severity Reaction Status Date / Time No Known Allergies Allergy Verified 06/21/21 14:23 Physical Exam Vitals: Vital Signs Temp Pulse Resp BP Pulse Ox 06/24/21 12:32 97.9 F 104 H 18 142/105 97 06/24/21 09:23 97.8 F 109 H 16 137/96 95 06/24/21 07:52 94 L 06/24/21 04:00 108 H 18 130/91 94 L 06/23/21 23:15 106 H 18 145/95 95 06/23/21 20:45 98.4 F 111 H 18 165/94 96 Intake and Output 06/24/21 06/24/21 06/24/21 06:59 14:59 22:59 Intake Total 236 Balance 236 Intake: Oral 236 Other: Voiding Method Toilet Toilet # Voids 3 1 # Bowel Movements 1 Results 06/24/21 07:57 06/24/21 07:57 CBC 06/24/21 Range/Units 07:57 WBC 8.7 (3.8-10.6) k/uL RBC 5.16 (3.80-5.40) m/uL Hgb 16.5 H (11.4-16.0) gm/dL Hct 49.1 H (34.0-46.0) % Plt Count 321 (150-450) k/uL Comprehensive Metabolic Panel 06/24/21 Range/Units 07:57 Sodium 139 (137-145) mmol/L Potassium 5.2 H (3.5-5.1) mmol/L Chloride 103 (98-107) mmol/L Carbon Dioxide 27 (22-30) mmol/L BUN 20 H (7-17) mg/dL Creatinine 0.97 (0.52-1.04) mg/dL Glucose 117 H (74-99) mg/dL Calcium 9.6 (8.4-10.2) mg/dL Current Medications Generic Name Dose Route Start Last Admin Trade Name Freq PRN Reason Stop Dose Admin Acetaminophen 650 mg 06/23/21 20:59 06/23/21 21:23 Acetaminophen Tab 325 Mg Tab PO 650 mg Q6HR PRN Administration Fever and/ or Pain Hydrocodone Bitart/Acetaminophen 1 each 06/24/21 15:09 Hydrocodone/Apap 5-325mg 1 Each Tab PO Q6HR PRN Pain Albuterol Sulfate 2.5 mg 06/22/21 09:18 Albuterol Nebulized 2.5 Mg/3 Ml INHALATION RT-Q4H PRN Shortness Of Breath Aspirin 81 mg 06/22/21 09:00 06/24/21 08:26 Aspirin 81 Mg PO 81 mg DAILY EMILY Administration Atorvastatin Calcium 80 mg 06/23/21 21:00 06/23/21 20:51 Atorvastatin 80 Mg Tab PO 80 mg HS EMILY Administration Clopidogrel Bisulfate 75 mg 06/22/21 09:00 06/24/21 08:26 Clopidogrel 75 Mg Tab PO 75 mg DAILY EMILY Administration Cyclobenzaprine HCl 10 mg 06/22/21 09:00 06/24/21 08:26 Cyclobenzaprine 10 Mg Tab PO 10 mg DAILY EMILY Administration Fenofibrate 160 mg 06/23/21 09:00 06/24/21 08:26 Fenofibrate 160 Mg Tab PO 160 mg DAILY EMILY Administration Fluticasone Propionate 2 spray 06/23/21 09:00 06/24/21 08:27 Fluticasone 50mcg/[place] Nasal 16gm EA NOSTRIL Not Given DAILY EMILY Gabapentin 400 mg 06/21/21 21:00 06/23/21 20:51 Gabapentin 400 Mg Cap PO 400 mg HS EMILY Administration Heparin Sodium (Porcine) 5,000 unit 06/21/21 21:00 06/24/21 08:26 Heparin Sodium,Porcine/Pf 5,000 Unit/0.5 Ml Syringe SQ 5,000 unit Q12HR EMILY Administration Sodium Chloride 1,000 mls @ 20 mls/hr 06/23/21 11:00 06/24/21 08:27 Saline 0.9% IV Not Given .Q24H EMILY Loratadine 10 mg 06/22/21 09:00 06/24/21 08:26 Loratadine 10 Mg Tab PO 10 mg DAILY EMILY Administration Lorazepam 0.5 mg 06/23/21 15:50 06/24/21 15:58 Lorazepam 0.5 Mg Tab PO 0.5 mg Q6H PRN Administration Agitation Melatonin 3 mg 06/21/21 22:00 06/23/21 20:51 Melatonin 3 Mg Tablet PO 3 mg HS EMILY Administration Metoprolol Tartrate 12.5 mg 06/24/21 21:00 Metoprolol Tartrate 12.5 Mg Tab PO BID EMILY Nicotine 1 patch 06/23/21 16:00 06/24/21 08:26 Nicotine 21mg/24hr Patch TRANSDERM 1 patch DAILY EMILY Administration Pantoprazole Sodium 40 mg 06/22/21 07:30 06/24/21 06:37 Pantoprazole 40 Mg Tablet PO 40 mg [id number] EMILY Administration Intake and Output 06/24/21 06/24/21 06/24/21 06:59 14:59 22:59 Intake Total 236 Balance 236 Intake: Oral 236 Other: Voiding Method Toilet Toilet # Voids 3 1 # Bowel Movements 1 06/24/21 07:57 06/24/21 07:57
[2021-06-24] MEDS: ATORVASTATIN 80 MG TAB PO SCH (21:05)
[2021-06-24] MEDS: GABAPENTIN 400 MG CAP PO SCH (21:05)
[2021-06-24] MEDS: METOPROLOL TARTRATE 12.5 MG TAB PO SCH (21:05)
[2021-06-24] MEDS: MELATONIN 3 MG TABLET PO SCH (21:05)
[2021-06-25] MEDS: PANTOPRAZOLE 40 MG TABLET PO SCH (06:14)
[2021-06-25] MEDS: NICOTINE 21MG/24HR PATCH TRANSDERM SCH (08:21)
[2021-06-25] MEDS: HEPARIN SODIUM,PORCINE/PF 5,000 UNIT/0.5 ML SYRINGE SQ SCH (08:21)
[2021-06-25] MEDS: CLOPIDOGREL 75 MG TAB PO SCH (08:22)
[2021-06-25] MEDS: LORATADINE 10 MG TAB PO SCH (08:22)
[2021-06-25] MEDS: ASPIRIN 81 MG PO SCH (08:22)
[2021-06-25] MEDS: FLUTICASONE 50MCG/SPRAY NASAL 16GM EA NOSTRIL SCH (08:22)
[2021-06-25] MEDS: FENOFIBRATE 160 MG TAB PO SCH (08:22)
[2021-06-25] MEDS: LORazepam 0.5 MG TAB PO PRN (08:22)
[2021-06-25] MEDS: CYCLOBENZAPRINE 10 MG TAB PO SCH (08:22)
[2021-06-25] MEDS: METOPROLOL TARTRATE 12.5 MG TAB PO SCH (08:22)
[2021-06-25] MEDS: SODIUM CHLORIDE 0.9% 1,000 ML IV SCH (08:22)
[2021-06-25 09:50] LABS: Calcium 9.7 mg/dL (8.4-10.2); Potassium 4.8 mmol/L (3.5-5.1)
--- NOTE | 2021-06-25 11:54 | P.CONS ---
History of Present Illness - Reason for Consult Consult date: 06/25/21 Lupus positive, CVA Requesting physician: Jessica Nelson - Chief Complaint Stroke like symptoms, slurred speech - History of Present Illness Mrs. Dominguez is a very pleasant 41-year-old female who is here for wart finding difficulty and mild right upper extremity weakness, found to have what appears to be an embolic CVA. She has been worked up so far with WERNER as well as lower extremity Doppler which revealed a possible PFO as well as negative lower extremity Doppler for DVT. CBC on presentation normal, heme globin increase to 16 on repeat. Hypercoagulable workup was initiated and she was found to have lupus anticoagulant. We were consulted regarding further recommendations on possible embolic stroke with positive lupus anticoagulant. She denies any history of blood clots or prior strokes or heart disease. She does have controlled hypertension and diabetes. She continues to have word finding difficulty and seems very frustrated about this. Has a history of menorrhagia and follows with gynecology. No prior autoimmune disorder or malignancy or family history of autoimmune disorder malignancy or thrombosis. She has not been started on anticoagulation however has been on antiplatelet since presentation. She does smoke on average one pack per day. Has mild obesity. No other significant complaints at this point. History from patient is slightly limited due to her word finding ability. Past Medical History Past Medical History: Diabetes Mellitus, Hypertension Additional Past Medical History / Comment(s): Patient states she was prediabetic, neuropathy. History of Any Multi-Drug Resistant Organisms: None Reported Past Surgical History: No Surgical Hx Reported Past Anesthesia/Blood Transfusion Reactions: No Reported Reaction Past Psychological History: Anxiety, Depression, PTSD Smoking Status: Current every day smoker Past Alcohol Use History: None Reported Past Drug Use History: Marijuana - Past Family History Mother Family Medical History: Coronary Artery Disease (CAD), CVA/TIA Father Family Medical History: Seizure Disorder Medications and Allergies Home Medications Medication Instructions Recorded Confirmed Type Albuterol Sulfate [Proair Hfa] 2 puff INHALATION RT-Q4H PRN 06/21/21 06/21/21 History Cyclobenzaprine [Flexeril] 10 mg PO DAILY 06/21/21 06/21/21 History Erythromycin Topical [Erythromycin 1 applic TOPICAL DAILY PRN 06/21/21 06/21/21 History 2% Topical Soln] Fenofibrate [Lofibra] 160 mg PO DAILY 06/21/21 06/21/21 History Fluticasone Nasal [place] [Flonase 2 spr EA NOSTRIL DAILY 06/21/21 06/21/21 History Nasal [place]] Gabapentin [Neurontin] 400 mg PO HS 06/21/21 06/21/21 History Ibuprofen [Motrin] 800 mg PO TID 06/21/21 06/21/21 History Loratadine 10 mg PO DAILY 06/21/21 06/21/21 History Magnesium Oxide 400 mg PO DAILY 06/21/21 06/21/21 History Melatonin 3 mg PO HS 06/21/21 06/21/21 History Omeprazole 40 mg PO DAILY 06/21/21 06/21/21 History Spironolactone [Aldactone] 50 mg PO DAILY 06/21/21 06/21/21 History Allergies Allergy/AdvReac Type Severity Reaction Status Date / Time No Known Allergies Allergy Verified 06/21/21 14:23 Physical Exam Vitals: Vital Signs Temp Pulse Resp BP Pulse Ox 06/24/21 12:32 97.9 F 104 H 18 142/105 97 06/24/21 09:23 97.8 F 109 H 16 137/96 95 06/24/21 07:52 94 L 06/24/21 04:00 108 H 18 130/91 94 L 06/23/21 23:15 106 H 18 145/95 95 06/23/21 20:45 98.4 F 111 H 18 165/94 96 Intake and Output 06/24/21 06/24/21 06/24/21 06:59 14:59 22:59 Intake Total 236 Balance 236 Intake: Oral 236 Other: Voiding Method Toilet Toilet # Voids 3 1 # Bowel Movements 1 Gen.: no acute distress. HEENT: Mucosa moist. No conjunctival pallor or scleral icterus. Neck: Neck supple. Lungs: No respiratory distress. Heart: Normal rate. Abdomen: Soft. Neuro: Alert and oriented 3, but having word finding difficulty. Skin: No jaundice. Psych: Appropriate affect, tearful when she is having trouble finding her words. Results CBC & Chem 7: 06/24/21 07:57 06/25/21 09:08 Labs: Abnormal Lab Results - Last 24 Hours (Table) 06/24/21 06/24/21 Range/Units 07:57 07:57 Hgb 16.5 H (11.4-16.0) gm/dL Hct 49.1 H (34.0-46.0) % Potassium 5.2 H (3.5-5.1) mmol/L BUN 20 H (7-17) mg/dL Glucose 117 H (74-99) mg/dL CT Scan - head: report reviewed MRI - head: report reviewed Venous US: report reviewed Assessment and Plan Assessment: 1. CVA 2. Positive lupus anticoagulant 3. Polycythemia 4. Smoking Plan: Mrs. Dominguez is a very pleasant 41-year-old female who presents with word finding difficulty due to CVA, workup revealed possible PFO and positive lupus anticoagulant. No personal or family history of autoimmune disorders, clotting, or malignancy. Lupus anticoagulant checked while on antiplatelet therapy is not anticoagulation. She needs further hypercoagulable workup including beta-2 glycoprotein and anticardiolipin antibodies. ERASMO was negative and ESR was normal. She would likely benefit from anticoagulation, preferably Coumadin with heparin or Lovenox bridging, due to high concern of thrombotic stroke. Also with mild polycythemia however EDC was normal on presentation and she does have a significant history of smoking. She'll need to follow-up outpatient in a couple weeks and repeat testing of lupus anticoagulant if rest of workup is unremarkable will need to be pursued in 3 months. Discussed with patient and she is agreeable to the plan. All of her questions were answered.
[2021-06-25 12:10] VITALS: BP 124/64; PULSE 104; RESP 18; TEMP 97.7
[2021-06-25] MEDS ORDERED: ENOXAPARIN 150 MG/ML SYRINGE SQ STA (12:57)
[2021-06-25] MEDS ORDERED: ENOXAPARIN 120 MG/0.8 ML SYRINGE SQ SCH (13:00)
--- NOTE | 2021-06-25 13:30 | P.PN ---
Progress Note - Text This is a 41-year-old female who came in with an embolic stroke She is diabetic, hemoglobin 6.6 Hypertension WERNER could not completely confirm a PFO Venous Dopplers of the upper and lower extremities both were negative Lupus anticoagulant APTT 64 Lupus anticoagulant PTT mix 52 Gamaliel viper venom 51 Lupus hexachlorophene is positive A Lupus and agranular present Antithrombin III antigen normal This patient is Lupus anticoagulant positive, irrespective of the ERASMO status I've ordered cardiolipin and beta 2 glycoprotein 1 antibodies IgA IgM and IgG Appreciate hematology input and recommendation Recommend In this 41-year-old female with an embolic stroke and a positive lupus anticoagulant Heparin or Lovenox followed by Coumadin is recommended Antiplatelet therapy is not indicated In my medical opinion, an event monitor or loop monitor is not indicated especially since she will be anticoagulated for life with warfarin If there is any further clinical indication a suggestion of possible atrial arrhythmias, event monitoring will be considered in the future Management of diabetes Smoking cessation Management of HTN Elevated heart rates at this time and therefore metoprolol was initiated However she would be better served with an Daryl inhibitor or angiotensin receptor geetha
--- NOTE | 2021-06-25 13:49 | P.PN ---
Subjective Progress Note Date: 06/25/21 This is Nathanael santana NP, I'm dictating on behalf of Dr. Murray's H&P and A&P. Patient was interviewed and examined. Patient is a pleasant 41-year-old female who initially presented to Hospital subacute CVA. Patient appears to be positive for anti-lupus anticoagulation antibodies. Please see text note by Dr. Murray for full evaluation and recommendation. GENERAL: Well-appearing, well-nourished and in no acute distress. NECK: Supple without JVD or thyromegaly. LUNGS: Breath sounds clear to auscultation bilaterally. Respiration equal and unlabored. No wheezes, rales or rhonchi. HEART: Regular rate and rhythm without murmurs, rubs or gallops. S1 and S2 heard. EXTREMITIES: Normal range of motion, no edema. No clubbing or cyanosis. Peripheral pulses intact and strong. VITALS: Temp 97.8, pulse 111, respirations 17, blood pressure 124/64, O2 saturation 93% on room air TELEMETRY: Sinus tachycardia LABS: Sodium 137, potassium 4.8, B1 18, creatinine 0.98 calcium 9.7 IMPRESSION/PLAN: Please see previous note dictated by Dr. Murray for full impression and plan. Objective - Vital Signs Vital signs: Vital Signs Temp 97.7 F 06/25/21 12:08 Pulse 104 H 06/25/21 12:08 Resp 18 06/25/21 12:08 BP 124/64 06/25/21 12:08 Pulse Ox 93 L 06/25/21 12:08 Intake & Output 06/24/21 06/25/21 06/25/21 18:59 06:59 18:59 Intake Total 354 480 Balance 354 480 Intake: Oral 354 480 Other: Voiding Method Toilet Toilet Toilet # Voids 2 1 2 # Bowel Movements 1 - Labs CBC & Chem 7: 06/24/21 07:57 06/25/21 09:08 Labs: Abnormal Lab Results - Last 24 Hours (Table) 06/25/21 Range/Units 09:08 BUN 18 H (7-17) mg/dL Glucose 148 H (74-99) mg/dL
[2021-06-25 15:32] LABS: Basophils % (A) 0 %; Eosinophils # (A) 0.1 k/uL (0-0.7); Eosinophils % (A) 2 %; HCT 48.1 % (34.0-46.0); HGB 15.8 gm/dL (11.4-16.0); Lymphocytes # (A) 2.8 k/uL (1.0-4.8); Lymphocytes % (A) 30 %; MCH 30.6 pg (25.0-35.0); MCHC 32.7 g/dL (31.0-37.0); MCV 93.5 fL (80.0-100.0); Mean Platelet Volume 6.7; Monocytes # (A) 0.4 k/uL (0-1.0); Monocytes % (A) 4 %; Neutrophils # (A) 5.8 k/uL (1.3-7.7); Neutrophils % (A) 63 %; Platelet Count 353 k/uL (150-450); RBC 5.15 m/uL (3.80-5.40); RDW 12.9 % (11.5-15.5); WBC 9.3 k/uL (3.8-10.6)
[2021-06-25 15:35] LABS: Prothrombin Time 10.4 sec (9.0-12.0)
--- NOTE | 2021-06-25 15:39 | P.PN ---
Subjective Progress Note Date: 06/25/21 The patient is seen at bedside and denies any new neurological problems. Hematology evaluated the patient and felt positive lupus anticoagulant Objective - Vital Signs Vital signs: Vital Signs Temp 97.7 F 06/25/21 12:08 Pulse 104 H 06/25/21 12:08 Resp 18 06/25/21 12:08 BP 124/64 06/25/21 12:08 Pulse Ox 93 L 06/25/21 12:08 Intake & Output 06/24/21 06/25/21 06/25/21 18:59 06:59 18:59 Intake Total 354 480 Balance 354 480 Intake: Oral 354 480 Other: Voiding Method Toilet Toilet Toilet # Voids 2 1 2 # Bowel Movements 1 - Exam GENERAL: The patient is an obese woman, lying in bed and is not in acute distress. She seems anxious. NEUROLOGICAL: Higher mental function: The patient is awake, alert, oriented to self, place and time. Patient is able to name (watch, pen and glasses). Patient is following simple commands. Expressive aphasia. No neglect. Cranial nerves: The pupils are round, equal and reactive to light and accommodation. Visual santillan are full to confrontation throughout. Extraocular movement is intact no nystagmus is noted. Facial sensation is normal to touch throughout. The facial strength is normal throughout. Hearing is normal bilaterally to hand rub. Tongue is midline and moved [id number] without any difficulty. No dysarthria is noted. Shoulder shrug is normal bilaterally. Motor: Gait is normal. The strength is right distal right upper extremity is 3- 4 (including hand cable systems installer). Proximal seemed 5-. Otherwise 5 over 5 throughout. Decrease tone over the right distal upper extremity. Otherwise normal tone and bulk. Cerebellum: Normal finger to nose heel to hernandez bilaterally. Sensation: Sensation is normal to touch throughout. Reflexes (right/left): 2+ throughout. Plantars are downgoing bilaterally. WORK-UP: Lipid panel is triglycerides 229, cholesterol 225, LDLs 134 and HDL 45. TSH is 1.80. Hemoglobin A1c 6.6 ESR is 14 (normal) CRP is 1.6 and the normal "supposed to be less than 1.0. ERASMO is negative It seems the Lupus anticoagulant testing seems elevated Antithrombin III antigen is 94 which is within normal limits. PT, PTT in INR is within normal limits Urinalysis is negative for urinary tract infection. Urine drug screen is positive for marijuana otherwise the rest is nondetected and serum alcohol was less than 10. CT of the head is reported as there is focal decreased attenuation involving the left frontal lobe which may reflect acute CVA. Underlying lesion is difficult to exclude. Consider MRI correlation. I personally reviewed the CT of the head and there is a hypodensity over the left frontal region it is seems more subacute. Otherwise there is no acute or subacute ischemic or any interpretable hemorrhage that is noticeable. CT angiography of the head and neck was reported as suspected left frontal and left temporal acute to subacute infarct over the left MCA territory with reduced caliber of the left internal carotid artery terminus as well as the left MCA. This could represent either markedly reduced caliber of the left MCA versus complete occlusion with collateral. Recommend correlation with the patient's the medical history and presentation. Underlying arterial spasm or vasculitis cannot be excluded. Further MRI assessment can be considered if clinically required. She had MRI Brain and it's reported as subacute infarct primarily in the left frontal parietal location however small focus is present contralaterally, consider embolic phenomenon. I personally reviewed the MRI and I do feel like a subacute stroke the stroker is predominantly on the left frontal with parietal Association and has some right frontal as well as. MRA of the head is reported as finding correlate with previously described abnormalities on the CTA. There is artifact on exam. Consider vasculitis, chronic occlusion, embolic phenomena. No evidence of aneurysm, dissection. 2-D echo was reported as left ventricle size is normal. Ejection fraction of greater than 55%. Left atrial size is normal. Bubble study performed suboptimal. Transesophageal echocardiogram was reported as no clot in the left atrial appendage. Questionable intermittent left to right shunt across that intra- arterial septum. No crossing of bubble with saline injection. Normal chamber. Normal valvular function. Ascending aorta is normal. Second opinion regarding questionable shunt across the interatrial septum. Continue current medical management. Venous duplex of the upper and lower extremities to rule out DVTs because of the embolic phenomena and they're both reported as negative. Dr. Aguilera (Stroke/Neurointerventionalist attending) who was contacted by the ED team and he reviewed the images of CTA and felt cannot rule out Moyamoya. No th rombectomy since outside 24 hour window. NIH 1 for aphasia per ED and no IV tpa since outside window (present 3 days out) and the risk outweigh the benefits. - Labs CBC & Chem 7: 06/24/21 07:57 06/25/21 09:08 Labs: Abnormal Lab Results - Last 24 Hours (Table) 06/25/21 Range/Units 09:08 BUN 18 H (7-17) mg/dL Glucose 148 H (74-99) mg/dL Assessment and Plan Assessment: * Subacute ischemic stroke over left fronto/parietal and right frontal (has expressive aphasia and right hand weakness for the past 3-4 days prior to presentation to hospital "word finding difficulty). NIH 1. No IV tpa since outside window. Seems embolic in nature. It is felt by the neuro-intervention team that possibly patient has ?Moyamoya disease. Suspected lupus anticoagulant * Suspected lupus anticoagulant * Reported left ICA/MCA stenosis on imaging (CTA and MRA0. * Diabetes mellitus and most recent hemoglobin A1c is 6.6 * Dyslipidemia (newly diagnosed during this admission) * Hypertension and during this presentation her blood pressure slightly elevated * Bilateral carpal tunnel syndrome (right > left) * Peripheral neuropathy * Obesity * Tobacco use (1/2 PPD) Plan: * Dr. Aguilera (Stroke/Neurointerventionalist attending) who reviewed the images and felt cannot rule out Moyamoya. Patient to follow-up with Dr. Aguilera as an outpatient for further management (possible diagnostic cerebral angiogram) and his team will coordinate the follow-up. * Pending factor V Leiden mutation. Her lupus workup (anticoag pTT, hexagonal phase, arian viper are all elevated. ERASMO is negative). ERASMO II ag is normal. Hematology evaluated the patient and felt, Positive lupus anticoagulant and that she will benefit from Coumadin with heparin or Lovenox bridging. Therefore, recommend to stop ASA and Plavix from neurological perspective. * Patient will get further hypercoagulable work-up as outpatient and will defer it to Hematology team. * Continue Lipitor 80mg qhs for secondary stroke prophylaxis. * I spoke with cardiology Attending multiple times today: And he did not feel event monitor or loop recorder is indicated at this time. * Transesophageal echocardiogram was reported as no clot in the left atrial appendage. Questionable intermittent left to right shunt across that intra- arterial septum. No crossing of bubble with saline injection. Normal chamber. Normal valvular function. Ascending aorta is normal. Second opinion regarding questionable shunt across the interatrial septum. Continue current medical management. * Continue neuro checks * Patient is on cardiac monitoring. No Afib. * PT, OT and SAMPLE COORDINATOR is consulted * Patient is counseled on tobacco cessation * Patient denies being on any control. She was informed to avoid estrogen as contraceptive but continues progesterone. * We'll defer the rest of the medical management to the primary team. * For DVT prophylaxis: On subq heparin 5000U every 12 hours. * Upon discharge recommend the patient follow up with a neurologist as an outpa tient within 1-2 weeks. Follow-up with Dr. Aguilera ([facility] at [phone]) within 1-2 weeks. The plan is discussed with the patient and primary team. There is no further neurological work-up. Patient is clear from neurological perspective. Salo Briscoe M.D. Neuro-Hospitalist Time with Patient: Less than 30
[2021-06-25] MEDS ORDERED: WARFARIN 3 MG TAB PO SCH (16:00)
--- NOTE | 2021-06-25 17:25 | P.PN ---
Progress Note - Text I ordered cardiolipin and other labs in view of her lupus anticoagulant status While I was putting in these orders to transfer order him up which I may have accidentally signed I spoke to Reed transmitter engineer in charge nurse to check the patient was being transferred or discharged and he stated he had not heard of any such decision I made medication changes and recommended initiating Coumadin with heparin or Lovenox bridging I was not contacted about any discharge orders by anyone nor did I have any knowledge that the patient was being discharged
--- NOTE | 2021-06-26 08:49 | P.DS ---
Providers Date of admission: 06/21/21 16:05 Attending physician: Jessica Nelson Consults: 06/21/21 16:04 Consult Physician Routine Consulting Provider: Salo Briscoe Consult Reason/Comments: subacute cva Do you want consulting provider notified?: Already Contacted 06/22/21 14:06 Consult Physician Routine Consulting Provider: Bryan Murray Consult Reason/Comments: WERNER and event monitor Do you want consulting provider notified?: Yes 06/24/21 09:09 Consult Physician Urgent Consulting Provider: Richard Eastman Consult Reason/Comments: young stroke. Positive lupus result Do you want consulting provider notified?: Yes 06/24/21 17:53 Consult Physician Routine Consulting Provider: Bryan Murray Consult Reason/Comments: subacute CVA, sinus tachycardia Do you want consulting provider notified?: Yes Primary care physician: Andreas Witt [facility] Course: Final Diagnosis Subacute ischemic stroke with symptoms of broca aphasia, right upper extremity weakness, slight right facial droop Lupus coagulopathy, hematology consulted, pending further work up Hyperkalemia up to 5.2, aldactone held and potassium improved to 4.8 Hypertension, started on lisinopril Possible PFO, further work up from cardiology once medically stable on anticoagulation outpatient Tachycardia, started low dose metoprolol Diabetes mellitus type 2 with hgb A1c of 6.6 started on metformin Elevated inflammatory markers Recent diagnosis carpal tunnel right wrist Peripheral neuropathy, started on gabapentin recently Obesity Chronic daily nicotine use: counseling provided Marijuana use Full Code Discharge Disposition Patient stable for discharge from a medical standpoint, follow up appointments include Primary care, Dr Witt, Neurology Dr Aguilera, Cardiology Dr Murray and Hematology with Dr Munoz. Apparently cardiology wanted to hold patient for continued monitoring, however there was no recommendation for an event/holter monitor on discharge and patient will follow up in the cardiology office and can have this done outpatient this week if recommendation changes, as well as no plans for surgical intervention inpatient at this time for the possible PFO, all consultations recommended anticoagulation therapy on discharge. Patient started on coumadin 6 mg PO daily with a Lovenox bridge 150 mg SQ daily for 7 days. Patient has a script to check PT/INR in 4 days with further adjustments as needed to dosing by primary care. Can stop lovenox if PT/INR is 2.0 or above and continue with coumadin daily. Patient recommended to not use any estrogen containing products for control, ok to use progesterone. Hospital Course This is a pleasant 41-year-old female who presents to the hospital with a 3 day history of expressive aphasia, right upper extremity weakness also noted was a slight right facial droop. Patient states that about 1 week prior as she was going to bed she felt buzzing on the entire right side of her body that was gone when she woke up. Patient has reported past medical history of diabetes mellitus, prediabetes per patient, hypertension, neuropathy, anxiety/depression, PTSD, currently every day smoker between 1 to 2 packs per day as well as daily marijuana use. No surgical history reported. Also with a history of PCOS, has last seen OBGYN in July of 2020 states her pap and pelvic were negative at that time. Patient also states that she has not had a menstrual period since October 2020, urine hCG is negative at this time. Patient recommended to follow-up with TUBER MACHINE OPERATOR in the office for her routine screening. Patient was admitted to the hospital with consultations placed to neurology and cardiology services. Patient also saw hematology this admission for further evaluation of blood work results and additional diagnostic labs were drawn before discharge and patient will follow up in the office. Patient will continue with speech therapy 3 to 5 times per week on discharge. She lives with her boyfriend currently. Diagnostics on admission include: Labs; unremarkable blood count panel, blood glucose in the 110's, A1c 6.6 Cholesterol panel shows triglycerides of 229, cholesterol 225, LDL 134, HDL 45.10 Urinalysis negative for infection, urine drug toxicology negative with the exception of marijuana Coagulation panel shows Lupus anti-coag PTT of 64, Lupus anti-coag PTT mix 52, dilute Gamaliel viper venom 51, lupus hexagon phase positive, ERASMO negative -Brain CT which shows focal decreased attenuation involving the left frontal lobe which may reflect acute CVA, underlying lesion is difficult to exclude. -CT angiography head and neck showed suspected left frontal and left temporal acute to subacute infarct with left MCA territory with reduced caliber of the left internal carotid artery terminus as well as a left MCA as described above. This could represent either a markedly reduced caliber of the left MCA versus complete occlusion with collaterals. Recommend correlation with the patient's medical history and presentation. Underlying arterial spasm or vasculitis cannot be excluded, further MRI assessment can be considered if clinically required. -Chest x-ray shows no acute abnormality -Echocardiogram shows an EF greater than 55% with mild mitral regurgitation, mild tricuspid regurgitation, no pericardial effusion. -MRI of brain with and without contrast shows subacute infarct primarily in the left frontoparietal location however small focus is present contralaterally, consider embolic phenomenon [place] MRA shows abnormality described in prior CT show corresponding signal changes on MRI suspect collateralization, reducible with a level of the M1 and A1 segments of the internal carotid artery and the left difficult to exclude a chronic occlusion consider underlying vasculitis. Reduce signal is present in the middle cerebral artery supervision left course branch patient's herbal vascular infarct. No evident aneurysm or dissection. -WERNER shows questionable shunt across intra-arterial septum -Venous Doppler of bilateral upper and lower extremities are negative for DVT 06/25/2021 Patient was started on low dose beta geetha on 06/24/2021 by primary team for ongoing sinus tachycardia with heart rate in the 110's, and blood pressure became elevated at 142/105. This was changed to 12.5 mg of Toprol XL with the addition of lisinopril 2.5 mg po daily which is appropriate as patient's A1c consistent with diabetes. Discharged on high dose lipitor, aspirin and plavix not prescribed which was cleared by neurology as patient was discharged on coumadin with a lovenox bridge as described above. INR on day of discharge 1.0 and patient will have an INR check in 4 days. Patient educated on risk for bleeding associated with coumadin. Patient recommended to not use any estrogen containing products for control, ok to use progesterone. Patient counseled extensively on the importance of tobacco cessation, and importance of diet modifications and medication adherence. Patient will need close follow up with physicians as documented above. Cardiology work up revealed a possible PFO which per cardiology will require an outpatient follow up once patient is stabilized on anticoagulation therapy. Patient was cleared by neurology and hematology for discharge with office follow up. Patient experienced increased frustration and agitation over the weekend wanting to be discharged home and also experienced frustration with difficulties with speech. Started on oral ativan for anxiety as recommended by neurology and patient stated it helped alot and was able to get some sleep. She currently denies any chest pain, chest pressure, palpitations. Denies any cough or shortness of breath. Discharged on nicotine patches per request of patient and can continue with nicotine taper with primary care. Denies dizziness, lightheadedness, or headache. Neurological deficits stable including focal right upper extremity weakness, slight right facial droop, and continues with expressive aphasia although patient states she notices a slight improvement. She is alert x 4. She does express a desire for children with her boyfriend. Recommended close follow up with OBGYN for this. Lungs are clear, S1 S2 auscultated, abdomen is soft and non-tender. Patient is afebrile, heart rate 104, blood pressure 124/64, 95% on room air. Patient instructed to check her blood pressure and keep a log for follow up with primary care. If potassium elevated with repeat labs, recommending hold aldactone. Please see medication reconciliation for a list of current medications. Thank you for allowing us to participate in the care of this patient. Patient Condition at Discharge: Good Plan - Discharge Summary Discharge Rx Participant: No New Discharge Prescriptions: New Warfarin [Coumadin] 6 mg PO DAILY@1800 #10 tab Atorvastatin [Lipitor] 80 mg PO HS #30 tab Enoxaparin [Lovenox] 150 mg SQ DAILY #7 each Nicotine 21Mg/24Hr Patch [Habitrol] 1 each TRANSDERM DAILY #7 patch Metoprolol Succinate (ER) [Toprol Xl] 12.5 mg PO DAILY #30 tab LORazepam [Ativan] 0.5 mg PO TID #6 tab Acetaminophen Tab [Tylenol] 650 mg PO Q6HR PRN tab PRN Reason: Fever And/ Or Pain metFORMIN HCL [Glucophage XR] 500 mg PO DAILY #30 tab lisinopriL [Zestril] 2.5 mg PO DAILY #30 tab Continue Albuterol Sulfate [Proair Hfa] 2 puff INHALATION RT-Q4H PRN PRN Reason: Shortness Of Breath Melatonin 3 mg PO HS Omeprazole 40 mg PO DAILY Magnesium Oxide 400 mg PO DAILY Cyclobenzaprine [Flexeril] 10 mg PO DAILY Erythromycin Topical [Erythromycin 2% Topical Soln] 1 applic TOPICAL DAILY PRN PRN Reason: Skin Irritation Fluticasone Nasal [place] [Flonase Nasal [place]] 2 spr EA NOSTRIL DAILY Gabapentin [Neurontin] 400 mg PO HS Loratadine 10 mg PO DAILY Spironolactone [Aldactone] 50 mg PO DAILY Discontinued Ibuprofen [Motrin] 800 mg PO TID Fenofibrate [Lofibra] 160 mg PO DAILY Discharge Medication List Albuterol Sulfate [Proair Hfa] 2 puff INHALATION RT-Q4H PRN 06/21/21 [History] Cyclobenzaprine [Flexeril] 10 mg PO DAILY 06/21/21 [History] Erythromycin Topical [Erythromycin 2% Topical Soln] 1 applic TOPICAL DAILY PRN 06/21/21 [History] Fluticasone Nasal [place] [Flonase Nasal [place]] 2 spr EA NOSTRIL DAILY 06/21/21 [H istory] Gabapentin [Neurontin] 400 mg PO HS 06/21/21 [History] Loratadine 10 mg PO DAILY 06/21/21 [History] Magnesium Oxide 400 mg PO DAILY 06/21/21 [History] Melatonin 3 mg PO HS 06/21/21 [History] Omeprazole 40 mg PO DAILY 06/21/21 [History] Spironolactone [Aldactone] 50 mg PO DAILY 06/21/21 [History] Acetaminophen Tab [Tylenol] 650 mg PO Q6HR PRN tab 06/25/21 [Rx] Atorvastatin [Lipitor] 80 mg PO HS #30 tab 06/25/21 [Rx] Enoxaparin [Lovenox] 150 mg SQ DAILY #7 each 06/25/21 [Rx] LORazepam [Ativan] 0.5 mg PO TID #6 tab 06/25/21 [Rx] Metoprolol Succinate (ER) [Toprol Xl] 12.5 mg PO DAILY #30 tab 06/25/21 [Rx] Nicotine 21Mg/24Hr Patch [Habitrol] 1 each TRANSDERM DAILY #7 patch 06/25/21 [Rx] Warfarin [Coumadin] 6 mg PO DAILY@1800 #10 tab 06/25/21 [Rx] lisinopriL [Zestril] 2.5 mg PO DAILY #30 tab 06/25/21 [Rx] metFORMIN HCL [Glucophage XR] 500 mg PO DAILY #30 tab 06/25/21 [Rx] Follow up Appointment(s)/Referral(s): Bryan Murray MD [STAFF PHYSICIAN] - 1 Week (cardiology doctor. Patient needs an appointment in the event clinic; please call saturday to schedule follow up appointment. ) Germania Munoz MD [Medical Doctor] - 1 Week (hematology oncology doctor. please call saturday to schedule appointment within the next week. ) Andreas Witt DO [Primary Care Provider] - 1-2 days (please call Saturday to schedule a followup appointment in the next week. ) Max Aguilera MD [STAFF PHYSICIAN] - 1-2 days (Neurology MD. follow up with neurointerventionalist Dr. Aguilera outpatient when discharged from the hospital. Please call Saturday to schedule appointment for the next 1-2 days.) Ambulatory/Diagnostic Orders: Complete Blood Count w/diff [LAB.AMB] Location: None Selected Prothrombin Time INR [LAB.AMB] Time Frame: 4 Days, Location: None Selected Patient Instructions/Handouts: How to Stop Smoking (DC), Aphasia (DC), Ischemic Stroke (DC) Activity/Diet/Wound Care/Special Instructions: Follow up with speech therapy 3 to 5 times per week as recommended, patient has [employer] card Check blood pressure daily Hold lisinopril for systolic blood pressure less than 110 Lovenox daily for 7 days Begin coumadin daily Check PT/INR in 4 days, and than as recommended by primary care or hematology Can discontinue lovenox once PT/INR greater than 2.0 and continue with coumadin daily Discharge Disposition: HOME WITH HOME HEALTH SERVICES
[2021-06-26] MEDS ORDERED: METOPROLOL SUCCINATE (ER) 25 MG TAB.ER.24H PO SCH ×2 (09:00)
[2021-06-26 16:40] LABS: Cardiolipin Ab IgG Interp NEGATIVE (NEGATIVE); Cardiolipin Ab IgM Interp NEGATIVE (NEGATIVE); Cardiolipin IgA Antibody <2.0 U/mL; Cardiolipin IgM Antibody <1.5 U/mL
[2021-06-26 16:41] LABS: Cardiolipin Ab IgG Interp NEGATIVE (NEGATIVE); Cardiolipin Ab IgM Interp NEGATIVE (NEGATIVE); Cardiolipin IgM Antibody <1.5 U/mL
== END 2021-06-25 16:45 | disposition home health service (06) | DRG 65 ==
LOC: EC 12:36 → 3SCARD 16:05
PROVIDERS: ADMIT Internal Medicine; ATTEND Internal Medicine
PROC: B246ZZ4 Ultrasonography of Right and Left Heart, Transesophageal (ICD-10-PCS; principal; 2021-06-22)
DX: I63.412 Cerebral infarction due to embolism of left middle cerebral artery (principal); G81.91 Hemiplegia, unspecified affecting right dominant side; D68.62 Lupus anticoagulant syndrome; I67.5 Moyamoya disease; Q21.1 Atrial septal defect; Z68.41 Body mass index [BMI] 40.0-44.9, adult; R29.810 Facial weakness; R47.01 Aphasia; R29.701 NIHSS score 1; E78.5 Hyperlipidemia, unspecified; E66.9 Obesity, unspecified; R27.0 Ataxia, unspecified; T42.6X5A Adverse effect of other antiepileptic and sedative-hypnotic drugs, initial encounter; I65.22 Occlusion and stenosis of left carotid artery; E28.2 Polycystic ovarian syndrome; E11.40 Type 2 diabetes mellitus with diabetic neuropathy, unspecified; D75.1 Secondary polycythemia; F17.210 Nicotine dependence, cigarettes, uncomplicated; I08.1 Rheumatic disorders of both mitral and tricuspid valves; R00.0 Tachycardia, unspecified; E87.5 Hyperkalemia; F32.A Depression, unspecified; F43.10 Post-traumatic stress disorder, unspecified; G56.03 Carpal tunnel syndrome, bilateral upper limbs; G89.29 Other chronic pain; I10 Essential (primary) hypertension; Z79.899 Other long term (current) drug therapy; Z82.0 Family history of epilepsy and other diseases of the nervous system; Z82.3 Family history of stroke; Z82.49 Family history of ischemic heart disease and other diseases of the circulatory system; Z86.73 Personal history of transient ischemic attack (TIA), and cerebral infarction without residual deficits; Z71.6 Tobacco abuse counseling; Z71.3 Dietary counseling and surveillance
CPT/HCPCS: 36415; 70450; 70496; 70498; 70544; 70553; 71046; 80048; 80053; 80061; 80306; 80320; 81001; 81025; 81241; 82140; 83036; 84443; 84484; 85025; 85300; 85301; 85610; 85613; 85652; 85730; 86038; 86140; 86146; 86147; 93005; 93306; 93312; 93320; 93325; 93970; 94760; 96374; 99291

== ENCOUNTER 2021-11-20 17:45 | Emergency (ER) | payer OTHER ==
[2021-11-20 19:17] VITALS: TEMP 98.1
[2021-11-20] MEDS ORDERED: SODIUM CHLORIDE 0.9% 1,000 ML IV STA (21:14)
--- NOTE | 2021-11-20 21:30 | ED ---
General Adult HPI - General Chief complaint: Recheck/Abnormal Lab/Rx Stated complaint: lab recheck Time Seen by Provider: 11/20/21 20:36 Source: patient, RN notes reviewed Mode of arrival: ambulatory Limitations: no limitations - History of Present Illness Initial comments: 41-year-old female presents to the emergency department for evaluation of abnorm al laboratory studies and heavy vaginal bleeding. Patient states she has an elevated INR. Reports taking Coumadin due to history of CVA. States that her last blood draw her INR was almost 7 and was instructed to stop taking her Coumadin for 2 days, then to resume partial dose. States she has had vaginal bleeding for the past 3 weeks however the first 2 weeks were only intermittent spotting, with increased bleeding the past few days. States she is changing her pad approximately five times per day. Denies fever, chills, dizziness, headache, chest pain, shortness of breath, abdominal pain, nausea, vomiting, diarrhea, dysuria, hematuria, and hematochezia. No bruising or petechia. - Related Data Home Medications Medication Instructions Recorded Confirmed Albuterol Sulfate [Proair Hfa] 2 puff INHALATION RT-Q4H PRN 06/21/21 11/20/21 Cyclobenzaprine [Flexeril] 10 mg PO DAILY PRN 06/21/21 11/20/21 Erythromycin Topical [Erythromycin 1 applic TOPICAL BID 06/21/21 11/20/21 2% Topical Soln] Fluticasone Nasal [place] [Flonase 1 spr EA NOSTRIL DAILY 06/21/21 11/20/21 Nasal [place]] Gabapentin [Neurontin] 400 mg PO HS 06/21/21 11/20/21 Loratadine 10 mg PO DAILY 06/21/21 11/20/21 Magnesium Oxide 400 mg PO DAILY 06/21/21 11/20/21 Omeprazole 40 mg PO DAILY 06/21/21 11/20/21 Spironolactone [Aldactone] 50 mg PO DAILY 06/21/21 11/20/21 Acetaminophen Tab [Tylenol Tab] 1,000 mg PO Q6HR PRN 11/20/21 11/20/21 Doxycycline Hyclate 100 mg PO BID 11/20/21 11/20/21 HYDROcodone/APAP 5-325MG [[place] 1 tab PO BID PRN 11/20/21 11/20/21 5-325] Melatonin 4 mg PO HS 11/20/21 11/20/21 Nicotine 21Mg/24Hr Patch [Habitrol] 1 patch TRANSDERM DAILY 11/20/21 11/20/21 Ondansetron [Zofran] 4 mg PO Q6H PRN 11/20/21 11/20/21 Simethicone [Simethicone Chew] 80 mg PO ACHS PRN 11/20/21 11/20/21 Warfarin [Coumadin] 5 mg PO DIRECTED 11/20/21 11/20/21 lisinopriL [Zestril] 10 mg PO DAILY 11/20/21 11/20/21 polyethylene glycoL 3350 [Miralax] 17 gm PO DAILY PRN 11/20/21 11/20/21 Previous Rx's Medication Instructions Recorded Atorvastatin [Lipitor] 80 mg PO HS #30 tab 06/25/21 metFORMIN HCL [Glucophage XR] 500 mg PO DAILY #30 tab 06/25/21 Allergies Allergy/AdvReac Type Severity Reaction Status Date / Time No Known Allergies Allergy Verified 11/20/21 22:33 Review of Systems ROS Statement: Those systems with pertinent positive or pertinent negative responses have been documented in the HPI. ROS Other: All systems not noted in ROS Statement are negative. Past Medical History Past Medical History: CVA/TIA, Diabetes Mellitus, Hypertension Additional Past Medical History / Comment(s): Patient states she was prediabetic, neuropathy. History of Any Multi-Drug Resistant Organisms: None Reported Past Surgical History: No Surgical Hx Reported Past Anesthesia/Blood Transfusion Reactions: No Reported Reaction Past Psychological History: Anxiety, Depression, PTSD Smoking Status: Current every day smoker Past Alcohol Use History: None Reported Past Drug Use History: Marijuana - Past Family History Mother Family Medical History: Coronary Artery Disease (CAD), CVA/TIA Father Family Medical History: Seizure Disorder General Exam Limitations: no limitations (Well-developed, well-nourished male in no acute distress. Initial temperature 98.1, pulse 107, respirations 16, blood pressure 132/85, pulse ox 97% on room air.) General appearance: alert, in no apparent distress Eye exam: Present: normal appearance. Absent: scleral icterus, conjunctival injection, periorbital swelling ENT exam: Present: normal exam, normal oropharynx, mucous membranes moist Neck exam: Present: normal inspection, full ROM. Absent: lymphadenopathy Respiratory exam: Present: normal lung sounds bilaterally. Absent: respiratory distress, wheezes, rales, rhonchi, stridor, chest wall tenderness Cardiovascular Exam: Present: regular rate, normal rhythm, normal heart sounds. Absent: systolic murmur, diastolic murmur, rubs, gallop, clicks GI/Abdominal exam: Present: soft, normal bowel sounds. Absent: distended, tenderness, guarding, rebound, rigid Rectal exam: Present: normal rectal tone, heme (-) stool, hemorrhoids Speculum exam: Present: vaginal bleeding (dark red vaginal bleeding; no clots) Back exam: Absent: CVA tenderness (R), CVA tenderness (L) Neurological exam: Present: alert, oriented X3, normal gait Psychiatric exam: Present: flat affect Skin exam: Present: warm, dry, intact, normal color Course Vital Signs 11/20/21 11/21/21 19:13 01:09 Temperature 98.1 F Pulse Rate 107 H 91 Respiratory 16 18 Rate Blood Pressure 132/84 137/82 O2 Sat by Pulse 97 99 Oximetry - Reevaluation(s) Reevaluation #1: 11/20/21 22:55 Upon reassessment, patient continues to be resting comfortably. No complaints of pain. Minimal vaginal bleeding. Rectal exam is unremarkable. Updated on results of laboratory studies. States she is scheduled for repeat INR on Saturday. Medical Decision Making - Medical Decision Making This is a 41-year-old female with a past medical history of CVA 2, diabetes, and hypertension who presents to the emergency department for evaluation of elevated INR. Patient is on Coumadin due to history of CVA. Last INR PCPs offi ce was nearly 7 and patient has had increased vaginal bleeding for the past 3 days. Upon exam, patient is well-appearing and in no acute distress. Her physical exam findings are unremarkable. She has vaginal bleeding consistent with normal menstrual period. No petechia, hematuria, or hematochezia. Laboratory studies were reviewed showing an INR of 1.3, PT 13.9, and PTT 31.5. Stool for occult blood was negative. Urine was negative. Hemoglobin is 13.0, hematocrit 40.1. Patient was given IV fluids. Discussed laboratory findings. Patient is aware that her ideal INR range is 2.0-3.0. Recommended tracking length and quality of menstrual cycle to discuss with PCP. Encouraged to resume taking her Coumadin as prescribed. Instructed to follow up on Saturday as scheduled. Strict return parameters were discussed in detail. Patient verbalizes understanding and agrees with this plan. Attending: [place]. - Lab Data Result diagrams: 11/20/21 21:30 11/20/21 21:30 Lab Results 11/20/21 11/20/21 11/20/21 Range/Units 21:30 21:30 21:30 WBC 11.2 H (3.8-10.6) k/uL RBC 4.40 (3.80-5.40) m/uL Hgb 13.0 (11.4-16.0) gm/dL Hct 40.1 (34.0-46.0) % MCV 91.2 (80.0-100.0) fL MCH 29.5 (25.0-35.0) pg MCHC 32.4 (31.0-37.0) g/dL RDW 13.0 (11.5-15.5) % Plt Count 318 (150-450) k/uL MPV 6.7 Neutrophils % 72 % Lymphocytes % 22 % Monocytes % 4 % Eosinophils % 1 % Basophils % 0 % Neutrophils # 8.1 H (1.3-7.7) k/uL Lymphocytes # 2.5 (1.0-4.8) k/uL Monocytes # 0.5 (0-1.0) k/uL Eosinophils # 0.1 (0-0.7) k/uL Basophils # 0.0 (0-0.2) k/uL PT 13.9 H (9.0-12.0) sec INR 1.3 H (<1.2) APTT 31.5 H (22.0-30.0) sec Sodium (137-145) mmol/L Potassium (3.5-5.1) mmol/L Chloride (98-107) mmol/L Carbon Dioxide (22-30) mmol/L Anion Gap mmol/L BUN (7-17) mg/dL Creatinine (0.52-1.04) mg/dL Est GFR (CKD-EPI)AfAm (>60 ml/min/1.73 sqM) Est GFR (CKD-EPI)NonAf (>60 ml/min/1.73 sqM) Glucose (74-99) mg/dL Calcium (8.4-10.2) mg/dL Total Bilirubin (0.2-1.3) mg/dL AST (14-36) U/L ALT (4-34) U/L Alkaline Phosphatase (38-126) U/L Total Protein (6.3-8.2) g/dL Albumin (3.5-5.0) g/dL Urine HCG, Qual (Not Detectd) Stool Occult Blood Negative (Negative) 11/20/21 11/20/21 Range/Units 21:30 23:36 WBC (3.8-10.6) k/uL RBC (3.80-5.40) m/uL Hgb (11.4-16.0) gm/dL Hct (34.0-46.0) % MCV (80.0-100.0) fL MCH (25.0-35.0) pg MCHC (31.0-37.0) g/dL RDW (11.5-15.5) % Plt Count (150-450) k/uL MPV Neutrophils % % Lymphocytes % % Monocytes % % Eosinophils % % Basophils % % Neutrophils # (1.3-7.7) k/uL Lymphocytes # (1.0-4.8) k/uL Monocytes # (0-1.0) k/uL Eosinophils # (0-0.7) k/uL Basophils # (0-0.2) k/uL PT (9.0-12.0) sec INR (<1.2) APTT (22.0-30.0) sec Sodium 138 (137-145) mmol/L Potassium 3.9 (3.5-5.1) mmol/L Chloride 102 (98-107) mmol/L Carbon Dioxide 26 (22-30) mmol/L Anion Gap 10 mmol/L BUN 12 (7-17) mg/dL Creatinine 0.70 (0.52-1.04) mg/dL Est GFR (CKD-EPI)AfAm >90 (>60 ml/min/1.73 sqM) Est GFR (CKD-EPI)NonAf >90 (>60 ml/min/1.73 sqM) Glucose 110 H (74-99) mg/dL Calcium 9.5 (8.4-10.2) mg/dL Total Bilirubin 0.3 (0.2-1.3) mg/dL AST 32 (14-36) U/L ALT 37 H (4-34) U/L Alkaline Phosphatase 87 (38-126) U/L Total Protein 7.2 (6.3-8.2) g/dL Albumin 4.4 (3.5-5.0) g/dL Urine HCG, Qual Not Detected (Not Detectd) Stool Occult Blood (Negative) Disposition Clinical Impression: Vaginal bleeding Disposition: HOME SELF-CARE Condition: Stable Instructions (If sedation given, give patient instructions): Abnormal (Dysfunctional) Uterine Bleeding (ED) Additional Instructions: Continue taking your home medications as prescribed. Carefully track the your menstrual cycle. Follow-up with your PCP for a recheck this week. Return to the emergency department with any new, worsening, or concerning symptoms. Is patient prescribed a controlled substance at d/c from ED?: No Referrals: Andreas Witt DO [Primary Care Provider] - 1-2 days Time of Disposition: 00:49
[2021-11-20 21:40] LABS: Basophils % (A) 0 %; Eosinophils # (A) 0.1 k/uL (0-0.7); Eosinophils % (A) 1 %; HCT 40.1 % (34.0-46.0); Lymphocytes # (A) 2.5 k/uL (1.0-4.8); Lymphocytes % (A) 22 %; MCH 29.5 pg (25.0-35.0); MCHC 32.4 g/dL (31.0-37.0); MCV 91.2 fL (80.0-100.0); Mean Platelet Volume 6.7; Monocytes # (A) 0.5 k/uL (0-1.0); Monocytes % (A) 4 %; Neutrophils # (A) 8.1 k/uL (1.3-7.7); Neutrophils % (A) 72 %; Platelet Count 318 k/uL (150-450); WBC 11.2 k/uL (3.8-10.6)
[2021-11-20 21:54] LABS: INR 1.3 (<1.2); Partial Thromboplastin Time 31.5 sec (22.0-30.0); Prothrombin Time 13.9 sec (9.0-12.0)
[2021-11-20 21:57] LABS: ALT 37 U/L (4-34); AST 32 U/L (14-36); African American GFR (CKD) >90 (>60 ml/min/1.73 sqM); Albumin 4.4 g/dL (3.5-5.0); Alkaline Phosphatase 87 U/L (38-126); Anion Gap 10 mmol/L; Blood Urea Nitrogen 12 mg/dL (7-17); Calcium 9.5 mg/dL (8.4-10.2); Carbon Dioxide 26 mmol/L (22-30); Chloride 102 mmol/L (98-107); Glucose 110 mg/dL (74-99); Non-African American GFR(CKD) >90 (>60 ml/min/1.73 sqM); Potassium 3.9 mmol/L (3.5-5.1); Sodium 138 mmol/L (137-145); Total Bilirubin 0.3 mg/dL (0.2-1.3); Total Protein 7.2 g/dL (6.3-8.2)
[2021-11-21 01:10] VITALS: BP 137/82; PULSE 91; RESP 18
== END 2021-11-21 01:09 | disposition home or self-care (01) ==
LOC: EC 17:45
DX: N93.9 Abnormal uterine and vaginal bleeding, unspecified (principal); E11.9 Type 2 diabetes mellitus without complications; F17.200 Nicotine dependence, unspecified, uncomplicated; Z86.73 Personal history of transient ischemic attack (TIA), and cerebral infarction without residual deficits
CPT/HCPCS: 36415; 80053; 81025; 82272; 85025; 85610; 85730; 99284

== ENCOUNTER → 2022-01-17 | Outpatient (CLI) | payer OTHER ==
--- NOTE | 2022-01-17 17:37 | P.PN ---
Subjective DATE: 01/17/2022 FOLLOW UP VISIT. Patient with obstructive sleep apnea hypopnea syndrome return to sleep center for follow-up visit. Recently patient had sleep study which documented obstructive sleep apnea hypopnea syndrome. Patient was initiated on PAP therapy and today is first visit after treatment was started. Patient was able to use PAP equipment every night for the whole night. The patient does not have significant problems with the mask, PAP pressure and humidification. I discussed results of sleep study with patient in details [place] sleepiness scale is 6, during visit before treatment it was 12. I checked information from PAP unit. PAP unit pressure 5-10, average 9.9 cm H2O. Usage is 93 % for more then 4 hours, average 6.5 hours per night. Leak is 15.3 l/m, which is in acceptable range. Apnea Hypopnea Index is 0.7, which is normal. MEDICATIONS:1. Gabapentin 40 mg twice a day 2. Omeprazole 40 mg once a day 3. Spironolactone 25 mg 2 tablets a day 4. Pro air 5. Fluticasone 6. Melatonin 7. Loratidine 10 mg once a day 8. Fenofibrate 160 mg once a day During physical exam: GENERAL: A pleasant patient without any distress. VITAL SIGNS: BP 144/87, HR 113, RR 16, weight 228, temperature 97.1, oxygen saturation at room air 95%. HEENT: PERRLA, EOMI.low position of soft palate, Mallapati 4 . NECK: Supple. No JVD. LUNGS: Clear to percussion and to auscultation. Good air exchange. No wheezing or rhonchi. HEART: S1, S2 regular. ABDOMEN: Soft and nontender. Slightly obese EXTREMITIES: No clubbing or cyanosis. FEATURES REPORTER: Awake, alert, and oriented x3. No focal deficit. Impressions: 1. Obstructive sleep apnea-hypopnea syndrome. Patient demonstrated great compliance with treatment, benefiting from treatment. 2. Hypertension. 3. History of stroke with aphasia. 4. Acid reflux. 5. History of lupus erythematodes. 6. ALLERGIES. 7. Obesity. 8. History of carpal tunnel syndrome. Plan: 1. Continue using PAP equipment every night for the whole night. 2. To change air filter at least 1-2 times per month. 3. PAP unit should stay lower then position of the head. 4. Advised patient to remove all remaining water from humidifier canister daily and make it dry after each usage. Refill canister with fresh distilled water before each usage. 5. Sleep hygiene with regular time in bed for at least 8 hours. 6. Precautions related to driving. No driving if feel any sleepiness. 7. I will maintain prescription for PAP supplies including mask, tube, filters. 8. Follow up visit in 6 months or earlier if patient has any problems. 9. Watching weight. Thank you very much for allowing me to participate in the management of your patient. Seferino Post MD, PhD, FAASM. Diplomat of [employer], Sleep Medicine Board by [employer] [facility] [place]
== END | disposition home or self-care (01) ==
LOC: SLEEP 15:38
PROVIDERS: ATTEND Internal Medicine
DX: G47.33 Obstructive sleep apnea (adult) (pediatric) (principal); I10 Essential (primary) hypertension; K21.9 Gastro-esophageal reflux disease without esophagitis; E66.9 Obesity, unspecified; G56.00 Carpal tunnel syndrome, unspecified upper limb; L93.0 Discoid lupus erythematosus; Z86.73 Personal history of transient ischemic attack (TIA), and cerebral infarction without residual deficits

== ENCOUNTER → 2022-02-09 | Outpatient (CLI) | payer OTHER ==
--- NOTE | 2022-02-09 14:56 | XR ---
EXAMINATION TYPE: XR wrist complete LT DATE OF EXAM: 02/09/2022 2:35 PM INDICATION: Patient age:Female; 41 years old; Reason for study: M25.532 PAIN IN LEFT WRIST; [facility]. COMPARISON: None TECHNIQUE: 4 views of the left wrist. Frontal, navicular, lateral, and oblique. FINDINGS: No acute osseous pathology, joint dislocation, or joint effusion. No evidence of any soft tissue swelling is seen. IMPRESSION: No acute osseous pathology.
== END | disposition home or self-care (01) ==
LOC: RADXRMAIN 14:16
PROVIDERS: ATTEND Nurse Practitioner Family
DX: M25.532 Pain in left wrist (principal)

== ENCOUNTER → 2022-05-15 | Outpatient (CLI) | payer OTHER ==
--- NOTE | 2022-05-16 08:40 | XR ---
EXAMINATION TYPE: XR shoulder complete LT DATE OF EXAM: 05/15/2022 CLINICAL HISTORY: Left shoulder pain, no known injury, pain mostly to left scapula TECHNIQUE: 4 views of the left shoulder are obtained. COMPARISON: None. FINDINGS: There is no acute fracture/dislocation evident in the left shoulder. The acromioclavicula r and glenohumeral joint spaces appear within normal limits. The visualized ribs are intact and unre markable. IMPRESSION: There is no acute fracture or dislocation in the left shoulder.
== END | disposition home or self-care (01) ==
LOC: RADXRMAIN 15:53
PROVIDERS: ATTEND Nurse Practitioner Family
DX: M25.512 Pain in left shoulder (principal)

== ENCOUNTER → 2022-07-26 | Outpatient (CLI) | payer OTHER ==
--- NOTE | 2022-07-26 17:42 | P.PN ---
Subjective DATE: 07/26/2022 FOLLOW UP VISIT. Patient with obstructive sleep apnea hypopnea syndrome return to sleep center for follow-up visit. Information from previous visit have been reviewed. Patient is using PAP equipment every night for the whole night, getting PAP supplies in time. The patient does not have significant problems with the mask, PAP unit and humidification. [place] sleepiness scale is borderline 10. I checked information from PAP unit. PAP unit pressure 6-11, average 10.6 cm H2O. Usage is 100% and 93 % for more then 4 hours, average 7 hours per night. Leak is 11.6 l/m, which is in acceptable range. Apnea Hypopnea Index is 0.2, which is normal. MEDICATIONS:1. Sertraline 50 mg once a day 2. Atorvastatin 80 mg once a day 3. Loratidine 10 mg once a day 4. Cyclobenzaprine 10 mg as needed 5. Metformin 1000 mg once a day 6. Omeprazole 40 mg once a day 7. Spironolactone 100 mg once a day 8. Lisinopril 10 mg once a day During physical exam: GENERAL: A pleasant patient without any distress. VITAL SIGNS: BP 127/73, HR 110, RR 16 , weight 226.6, temperature 98.0, oxygen saturation at room air 91 % . HEENT: PERRLA, EOMI.low position of soft palate, Mallapati 4 . NECK: Supple. No JVD. LUNGS: Clear to percussion and to auscultation. Good air exchange. No wheezing or rhonchi. HEART: S1, S2 regular. ABDOMEN: Soft and nontender. Obese EXTREMITIES: No clubbing or cyanosis. COMMISSARY OFFICER: Awake, alert, and oriented x3. No focal deficit. Impressions: 1. Obstructive sleep apnea-hypopnea syndrome. Patient demonstrated great compliance with treatment, benefiting from treatment. 2. Obesity, body mass index 41.3. 3. Hypertension. 4. History of stroke. 5. Acid reflux. 6. History of lupus erythematosus. 7. ALLERGIES. 8. History of carpal tunnel syndrome. Plan: 1. Continue using PAP equipment every night for the whole night. 2. To change air filter at least 1-2 times per month. 3. PAP unit should stay lower then position of the head. 4. Advised patient to remove all remaining water from humidifier canister daily and make it dry after each usage. Refill canister with fresh distilled water before each usage. 5. Sleep hygiene with regular time in bed for at least 8 hours. 6. Precautions related to driving. No driving if feel any sleepiness. 7. I will maintain prescription for PAP supplies including mask, tube, filters. 8. Watching and losing weight. 9. Follow up visit in 6 months or earlier if patient has any problems. Thank you very much for allowing me to participate in the management of your patient. Seferino Post MD, PhD, FAASM. Diplomat of [place] [employer], Sleep Medicine Board by [place] [employer] [facility] [place]
== END ==
LOC: SLEEP 15:38
PROVIDERS: ATTEND Internal Medicine
DX: G47.33 Obstructive sleep apnea (adult) (pediatric) (principal); E66.9 Obesity, unspecified; Z68.41 Body mass index [BMI] 40.0-44.9, adult; I10 Essential (primary) hypertension; Z86.73 Personal history of transient ischemic attack (TIA), and cerebral infarction without residual deficits; K21.9 Gastro-esophageal reflux disease without esophagitis; L93.0 Discoid lupus erythematosus; Z79.84 Long term (current) use of oral hypoglycemic drugs; Z79.899 Other long term (current) drug therapy; Z99.89 Dependence on other enabling machines and devices; G56.00 Carpal tunnel syndrome, unspecified upper limb
CPT/HCPCS: 99212

== ENCOUNTER → 2022-11-23 | Outpatient (CLI) | payer OTHER ==
--- NOTE | 2022-11-23 14:47 | XR ---
EXAMINATION TYPE: XR chest 2V DATE OF EXAM: 11/23/2022 COMPARISON: 06/21/2021 TECHNIQUE: PA and lateral views submitted. HISTORY: Presurgical FINDINGS: The lungs are clear and there is no pneumothorax, pleural effusion, or focal pneumonia. Heart size normal and no overt failure. Osseous structures intact. Linear changes left lung base most typical sc arring or atelectasis. IMPRESSION: 1. No acute process.
== END | disposition home or self-care (01) ==
LOC: RADXRMAIN 14:26
PROVIDERS: ATTEND Nurse Practitioner Family
DX: Z01.89 Encounter for other specified special examinations (principal)
CPT/HCPCS: 71046

== ENCOUNTER → 2023-04-04 | Outpatient (CLI) | payer OTHER ==
[2023-04-04 12:10] VITALS: BP 109/77; PULSE 75; RESP 15; TEMP 98.5
--- NOTE | 2023-04-04 15:08 | P.PAINPG ---
PQRS Measure Charge Sheet Comment: HISTORY OF PRESENT ILLNESS: A 42 yr old female as a referral from Dr Witt presents today w severe and chronic LBP x 4 yrs for evaluation. Pt states pain level is provoked at 6/10 in intensity, constant, localized in the lumbar spine, predominantly axial, achy in character without occasional shooting pain. Pain is provoked by bending, lifting. Pain is alleviated by chiropractic treatments monthy in early 2022, medications ([place] 5/325mg #90, Neurontin 300mg #90), repositioning and rest. Oswestry axial pain score at 24. PMH: OA, CVA/TIA, DM II, HTN, MDD/ Anxiety/ PTSD PSH: Denies SH: Daily tobacco use, No ETOH abuse, Cannabis use FH: Mo- CAD, Fa- SZ disorder All: See list Meds: See list REVIEW OF ORGAN SYSTEMS: CONSTITUTIONAL: No fevers or chills. No recent weight loss. NEUROLOGICAL: + numbness and tingling along the distal extremities. No seizure disorders or headaches. MUSCULOSKELETAL: + pain PSYCHIATRIC: Denies current depression or suicidal thoughts. Physical Examinations : Constitutional : Cooperative , not in acute distress . Neurologic : Cranial nerve II to XII intact. No focal neurological deficits. Psychiatric : alert & oriented x 3. Matching mood & appropriate affect. Judgment & insight intact. Musculoskeletal : Cervical Spine Motor strength in the deltoid and biceps: Normal right side. Normal Left side Motor strength biceps and the wrist extensors: Normal right side . Normal left side Motor strength in the triceps muscle: Normal right side. Normal left side Deep tendon reflexes: Normal at the biceps. Normal at Brachioradialis. Normal at triceps Vertebral body tenderness to deep palpation over Cervical facet loading test: positive bilaterally Spurling test: positive bilaterally Neck distraction test: positive bilaterally Breann sign: positive bilaterally Lumbar spine Motor strength lower extremities ,thigh and legs 5/5 Right side , 5/5 Left side Deep tendon reflexes : Normal Knee Jerk. Normal Ankle Jerk Vertebral body tenderness over Reyes Test positive Lumbar facet Loading Test: positive Right / positive Left Range of motion of the lumbar spine Flexion 30 degrees, extension 10 degrees Straight Leg Raise test: Left/ Right positive at degree Adrian test: positive right / positive left. Severe tenderness over the Sacroiliac joint on the Right / Left sides Gaenslen test: positive bilaterally Seated flexion test: positive bilaterally. Sacral spine : Severe tenderness over the Sacroiliac joint: right side / left side Range of motion: Flexion of the lumbar spine <60 degrees Range of motion: Extension of the lumbar spine <20 degrees Gaenslen's Test positive Adrian test: positive right side / left side Thigh Thrust Test Sacral Thrust Test Imaging: MRI noncontrast of the lumbar spine from 01/24/19 reviewed Assessment/ Plan : Lumbar spine Recommendation of x ray of lumbar spine [id number] May [facility] for a re evaluation. All questions answered. I have spent greater than 30 minutes on patient care today. Dr Jacinto was available by phone for the evaluation of this patient. The time was used to review the medical records including relevant urine studies and Prescription history (MAPs), review of the available imaging, evaluation and examination of the patient, coordination of care with the medical staff and if applicable referring physicians, as well as creation of the medical record Home Medications: Ambulatory Orders Albuterol Sulfate [Proair Hfa] 2 puff INHALATION RT-Q4H PRN 06/21/21 Cyclobenzaprine [Flexeril] 10 mg PO DAILY PRN 06/21/21 Erythromycin Topical [Erythromycin 2% Topical Soln] 1 applic TOPICAL BID 06/21/21 Fluticasone Nasal [place] [Flonase Nasal [place]] 1 spr EA NOSTRIL DAILY 06/21/21 Loratadine 10 mg PO DAILY 06/21/21 Magnesium Oxide 400 mg PO DAILY 06/21/21 Omeprazole 40 mg PO DAILY 06/21/21 Spironolactone [Aldactone] 50 mg PO DAILY 06/21/21 Atorvastatin [Lipitor] 80 mg PO HS #30 tab 06/25/21 metFORMIN HCL [Glucophage XR] 500 mg PO DAILY #30 tab 06/25/21 Acetaminophen Tab [Tylenol Tab] 1,000 mg PO Q6HR PRN 11/20/21 Doxycycline Hyclate 100 mg PO BID 11/20/21 Melatonin 4 mg PO HS 11/20/21 Nicotine 21Mg/24Hr Patch [Habitrol] 1 patch TRANSDERM DAILY 11/20/21 Ondansetron [Zofran] 4 mg PO Q6H PRN 11/20/21 Simethicone [Simethicone Chew] 80 mg PO ACHS PRN 11/20/21 Warfarin [Coumadin] 5 mg PO DIRECTED 11/20/21 lisinopriL [Zestril] 10 mg PO DAILY 11/20/21 polyethylene glycoL 3350 [Miralax] 17 gm PO DAILY PRN 11/20/21 Gabapentin [Neurontin] 300 mg PO TID 30 Days #90 cap 04/04/23 Controlled Substance Measures - Controlled Substance Measures Is patient prescribed a controlled substance at discharge?: No
== END ==
LOC: PNWHC3 11:10
PROVIDERS: ATTEND Specialist
DX: M54.50 Low back pain, unspecified (principal); G89.29 Other chronic pain; E11.9 Type 2 diabetes mellitus without complications; M19.90 Unspecified osteoarthritis, unspecified site; I10 Essential (primary) hypertension; F41.9 Anxiety disorder, unspecified; F43.10 Post-traumatic stress disorder, unspecified; F12.90 Cannabis use, unspecified, uncomplicated; F32.9 Major depressive disorder, single episode, unspecified; Z79.84 Long term (current) use of oral hypoglycemic drugs; Z86.73 Personal history of transient ischemic attack (TIA), and cerebral infarction without residual deficits; Z72.0 Tobacco use; Z79.899 Other long term (current) drug therapy; Z79.01 Long term (current) use of anticoagulants
CPT/HCPCS: 99211

== ENCOUNTER → 2023-10-22 | Outpatient (CLI) | payer OTHER ==
--- NOTE | 2023-10-25 07:47 | MM ---
Reason for Exam: Screening (asymptomatic). Last mammogram was performed 4 year(s) and 0 month(s) ago. Patient History: Menarche at age 11. Patient has no children. Postmenopausal. Progesterone for 5 years from age 33 until age 38. Maternal aunt had breast cancer, age 40. Maternal aunt had breast cancer. Last menstrual period: 04/22/2023 Risk Values: Nissa 5 year model risk: 0.7%. NCI Lifetime model risk: 12.0%. Prior Study Comparison: 10/23/2019 Bilateral Screening Mammogram, [facility]. 10/23/2019 Right Diagnostic Mammogram, [facility]. Tissue Density: There are scattered areas of fibroglandular density. Findings: Analyzed By CAD. There is no suspicious group of microcalcifications or new suspicious mass in either breast. Benign appearing calcifications. Overall Assessment: Benign, BI-RAD 2 Management: Screening Mammogram of both breasts in 1 year. . Patient should continue monthly self-breast exams. A clinical breast exam by your physician is recommended on an annual basis. This exam should not preclude additional follow-up of suspicious palpable abnormalities. Note on Nissa scores and lifetime risk: 1. A Nissa score greater than 3% is considered moderate risk. If this is the case, consider specialist referral to assess eligibility for a risk reducing agent. 2. If overall lifetime risk for the development of breast cancer is 20% or higher, the patient may qualify for future screening with alternating mammogram and breast MRI. Electronically signed and approved by: Demarcus Espinoza M.D. Radiologis
== END | disposition home or self-care (01) ==
LOC: RADMAMWWP 07:01
PROVIDERS: ATTEND Family Medicine
DX: Z12.31 Encounter for screening mammogram for malignant neoplasm of breast (principal); Z78.0 Asymptomatic menopausal state; Z80.3 Family history of malignant neoplasm of breast
CPT/HCPCS: 77063; 77067

== ENCOUNTER → 2024-10-06 | Outpatient (CLI) | payer OTHER ==
[~2024-10-06] MED LIST: SODIUM CHLORIDE 0.9% 250 ML in EMPTY BAG 1 BAG IV PRN
[2024-10-06 11:33] VITALS: BP 99/62; PULSE 106; RESP 18; TEMP 98
[2024-10-06] MEDS: SODIUM FERRIC GLUCONAT-SUCROSE 125 MG in SODIUM CHLORIDE 0.9% 100 ML IVPB NR (11:39)
[2024-10-06] MEDS: SODIUM CHLORIDE 0.9% 500 ML 500 ML in EMPTY BAG 1 BAG IV PRN (11:41)
== END ==
LOC: PROCWHC3 11:11
PROVIDERS: ATTEND Family Medicine
DX: E61.1 Iron deficiency (principal)
CPT/HCPCS: 96365; J2916